=== PATIENT | male | born 1960 | race Caucasian/White ===

== ENCOUNTER 2016-09-07 09:45 | Emergency (ER) | payer OTHER ==
[~2016-09-07] VITALS: Ht 162.6 cm; Wt 94.0 kg
[~2016-09-07 09:45] MED LIST: AMLO10TA4 PO; CTP1CL PO; FURO20TA PO; GLC/500 PO; INSHI7030 SC; INSHRI SC; LISI40TA PO; METO-551 PO; OMEP20CA9 PO; [UNRECOGNIZED DRUG - OTHER] PO; normal saline IV
[2016-09-07 09:49] VITALS: Ht 162.6 cm; Wt 94.0 kg
--- NOTE | 2016-09-07 10:34 | EMERGENCY ROOM VISIT NOTE ---
History Report prepared by David: Milly Toscano Under the Supervision of: Dr. Raymundo Eastman D.O. First contact with patient: 10:18 Chief Complaint: ILLNESS Stated Complaint: LEFT FACE/ LEFT ARM NUMBNESS History of Present Illness The patient is a 56 year old male who presents to the Emergency Room with complaints of persistent left arm and left cheek numbness that began when he woke up at 0600 this morning. The patient states that he has a history of a previous NE, quadruple bypass, and diabetes. He states that today when he told the staff at the [facility] about his numbness, they were concerned about another possible NE so he was sent here for further work up. The patient states that he intermittently becomes lightheaded and experiences a headache, but attributes that to varying blood glucose levels. He denies any weakness or pain to his extremities. The patient denies any chest pain. He denies any previous stroke. Source of History: patient Onset: 0600 this morning Position: arm (left), other (left cheek) Quality: numbness Timing: other (persistent) Associated Symptoms: + headache, No chest pain, No weakness Note: Associated Symptoms: lightheaded Review of Systems See HPI for pertinent positives & negatives. A total of 10 systems reviewed and were otherwise negative. Past Medical & Surgical Medical Problems: (1) Benign hypertension (2) Diabetes mellitus (3) Hyperlipidemia Family History Diabetes mellitus Social History Smoking Status: Former Smoker Marital Status: single Housing Status: other Current/Historical Medications Scheduled Amlodipine Besylate (Norvasc), 20 MG PO DAILY Atorvastatin (Lipitor), 1 TAB PO DAILY Hydrochlorothiazide (Hydrochlorothiazide), 1 TAB PO DAILY Insulin (Humulin R), 5 UNITS SC BIDM Insulin (Humulin R), 10 UNITS SC BID PRN Insulin Human Isophan/Regular (Humulin 70/30), 20 UNITS SC BID Lisinopril (Zestril), 20 MG PO DAILY Metformin Hcl (Glucophage), 500 MG PO BID Metoprolol Tartrate (Lopressor), 50 MG PO BID Omeprazole (Prilosec), 20 MG PO DAILY Allergies Coded Allergies: Aspirin (Verified Allergy, hives, 09/10/12) Physical Exam Vital Signs Date Time Temp Pulse Resp B/P Pulse Ox O2 Delivery O2 Flow Rate FiO2 09/07/16 12:56 37.2 92 17 148/85 98 Room Air 09/07/16 11:18 110 20 151/92 100 Room Air 09/07/16 10:56 99 Room Air 09/07/16 10:56 99 Room Air 09/07/16 09:59 90 09/07/16 09:49 36.7 94 20 175/93 99 Room Air Physical Exam GENERAL: Patient is awake, alert, and in no acute distress. Patient is resting comfortably and showing no signs of anxiety EYES: The conjunctivae are clear. The pupils are round and reactive. EARS, NOSE, MOUTH AND THROAT: The nose is without any evidence of any deformity. Mucous membranes are moist tongue is midline NECK: The neck is nontender and supple. RESPIRATORY: Normal respiratory effort is noted there is no evidence of wheezing rhonchi or rales CARDIOVASCULAR: Regular rate and rhythm noted there no murmurs rubs or gallops normal S1 normal S2 GASTROINTESTINAL: The abdomen is soft. Bowel sounds are present in all quadrants. Abdomen is nontender MUSCULOSKELETAL/EXTREMITIES: There is no evidence of gross deformity full range of motion is noted in the hips and shoulders SKIN: There is no obvious evidence of any rash. There are no petechiae, pallor or cyanosis noted. NEUROLOGIC: Patient is awake alert and oriented x3 strength is symmetric patellar reflexes are 2+ bilaterally Medical Decision & Procedures ER Provider Diagnostic Interpretation: X ray results and stated below per my interpretation and radiology interpretation. Other radiology results per my review and radiologist interpretation: CT SCAN OF THE BRAIN WITHOUT IV CONTRAST CLINICAL HISTORY: Weakness. Change in mental status. COMPARISON STUDY: No priors. TECHNIQUE: Unenhanced axial CT scan of the brain is performed from the vertex to the skull base. CT DOSE: 537.48 mGy.cm FINDINGS: Brain parenchyma: There is mild subcortical and periventricular microangiopathic change. There is no hemorrhage, mass effect, or evidence of acute territorial ischemia by CT criteria. Kebede-white matter is preserved. No extra-axial fluid collection is seen. Ventricles, sulci, cisterns: Normal in configuration. Intracranial vasculature: There is minimal atherosclerotic calcification of the cavernous carotid and vertebral arteries. Calvarium: Unremarkable. Sinuses and mastoids: The visualized paranasal sinuses are clear. The mastoid air cells are well pneumatized. Orbits: The bony orbits are grossly intact. The right ocular globe is atrophic and densely calcified. The left orbital contents are grossly normal as visualized. IMPRESSION: There is no hemorrhage, mass effect, or evidence of acute territorial ischemia by CT criteria. Electronically signed by: Artemio Mercedes M.D. 09/07/2016 11:11 AM Dictated Date/Time: 09/07/2016 11:08 AM SINGLE VIEW CHEST CLINICAL HISTORY: Change in mental status. Weakness. FINDINGS: An AP, portable, upright chest radiograph is compared to study dated 09/10/12 and correlated with chest CT dated 09/11/12. The examination is degraded by portable technique, apical lordotic positioning, and patient rotation. The patient is status post midline sternotomy. The heart is enlarged and there is atherosclerotic calcification of the thoracic aorta. The pulmonary vasculature is noncongested. Chronic interstitial thickening is similar to previous. There is no airspace consolidation, large pleural effusion, or pneumothorax. The skeletal structures are osteopenic. The bony thorax is grossly intact. IMPRESSION: Cardiomegaly with no acute cardiopulmonary abnormality. Electronically signed by: Artemio Mercedes M.D. 09/07/2016 10:44 AM Dictated Date/Time: 09/07/2016 10:43 AM Laboratory Results 09/07/16 10:00 Red Blood Count 5.21, Mean Corpuscular Volume 83.3, Mean Corpuscular Hemoglobin 29.6, Mean Corpuscular Hemoglobin Concent 35.5, Mean Platelet Volume 10.4, Neutrophils (%) (Auto) 72.7, Lymphocytes (%) (Auto) 16.3, Monocytes (%) (Auto) 8.6, Eosinophils (%) (Auto) 1.5, Basophils (%) (Auto) 0.4, Neutrophils # (Auto) 5.32, Lymphocytes # (Auto) 1.19, Monocytes # (Auto) 0.63, Eosinophils # (Auto) 0.11, Basophils # (Auto) 0.03 09/07/16 10:00 Test 09/07/16 10:00 09/07/16 10:53 White Blood Count 7.32 K/uL (4.8-10.8) Red Blood Count 5.21 M/uL (4.7-6.1) Hemoglobin 15.4 g/dL (14.0-18.0) Hematocrit 43.4 % (42-52) Mean Corpuscular Volume 83.3 fL (80-100) Mean Corpuscular Hemoglobin 29.6 pg (25-34) Mean Corpuscular Hemoglobin Concent 35.5 g/dl (32-36) Platelet Count 247 K/uL (130-400) Mean Platelet Volume 10.4 fL (7.4-10.4) Neutrophils (%) (Auto) 72.7 % Lymphocytes (%) (Auto) 16.3 % Monocytes (%) (Auto) 8.6 % Eosinophils (%) (Auto) 1.5 % Basophils (%) (Auto) 0.4 % Neutrophils # (Auto) 5.32 K/uL (1.4-6.5) Lymphocytes # (Auto) 1.19 K/uL (1.2-3.4) Monocytes # (Auto) 0.63 K/uL (0.11-0.59) Eosinophils # (Auto) 0.11 K/uL (0-0.5) Basophils # (Auto) 0.03 K/uL (0-0.2) RDW Standard Deviation 37.1 fL (36.4-46.3) RDW Coefficient of Variation 12.3 % (11.5-14.5) Immature Granulocyte % (Auto) 0.5 % Immature Granulocyte # (Auto) 0.04 K/uL (0.00-0.02) Prothrombin Time 11.6 SECONDS (9.0-12.0) Prothromb Time International Ratio 1.1 (0.9-1.1) Activated Partial Thromboplast Time 25.7 SECONDS (21.0-31.0) Partial Thromboplastin Ratio 1.0 Anion Gap 13.0 mmol/L (3-11) Est Creatinine Clear Calc Drug Dose 78.5 ml/min Estimated GFR () 87.1 Estimated GFR (Non- 75.2 BUN/Creatinine Ratio 13.9 (10-20) Calcium Level 9.1 mg/dl (8.5-10.1) Magnesium Level 1.6 mg/dl (1.8-2.4) Total Bilirubin 0.4 mg/dl (0.2-1) Direct Bilirubin 0.1 mg/dl (0-0.2) Aspartate Amino Transf (AST/SGOT) 22 U/L (15-37) Alanine Aminotransferase (ALT/SGPT) 34 U/L (12-78) Alkaline Phosphatase 93 U/L (45-117) Total Creatine Kinase 210 U/L (39-308) Creatine Kinase MB 6.6 ng/ml (0.5-3.6) Creatine Kinase MB Ratio 3.1 (0-3.0) Troponin I < 0.015 ng/ml (0-0.045) Total Protein 8.3 gm/dl (6.4-8.2) Albumin 3.5 gm/dl (3.4-5.0) Thyroid Stimulating Hormone (TSH) 0.803 uIu/ml (0.300-4.500) Urine Color YELLOW Urine Appearance CLEAR (CLEAR) Urine pH 7.5 (4.5-7.5) Urine Specific [place] 1.013 (1.000-1.030) Urine Protein NEG (NEG) Urine Glucose (UA) 3+ (NEG) Urine Ketones NEG (NEG) Urine Occult Blood NEG (NEG) Urine Nitrite NEG (NEG) Urine Bilirubin NEG (NEG) Urine Urobilinogen NEG (NEG) Urine Leukocyte Esterase NEG (NEG) Laboratory results per my review. Medications Administered Medications (Trade) Dose Ordered Sig/Gertrudis Route Start Time Stop Time Status Last Admin Dose Admin Sodium Chloride (Nss 1000ml) 1,000 ml @ 999 mls/hr Q1H1M STAT IV 09/07/16 11:44 09/07/16 12:44 DC 09/07/16 11:52 999 MLS/HR Magnesium Sulfate (Magnesium Sulfate) 1 gm NOW STAT IV 09/07/16 11:44 09/07/16 11:45 DC 09/07/16 11:52 1 GM ECG Indication: other (numbness) Rate (beats per minute): 91 Rhythm: normal sinus Findings: no ectopy, other (no ST segment abnormalities) Comparison ECG Date: 09/15/12 Change: no significant change ED Course 1022: The patient was evaluated in room B5. A complete history and physical examination were performed. 1144: Ordered Sodium Chloride 1000 ml @ 999 mls/hr IV, Magnesium Sulfate 1 gm IV. 1145: I reevaluated the patient and he is resting comfortably. I discussed the exam findings with him and I discussed the treatment plan. He verbalized complete understanding and agreement. He is ready to go home once he receives his fluids. Medical Decision Differential diagnosis: Etiologies such as metabolic, infection, hypo/hyperglycemia, electrolyte abnormalities, cardiac sources, intracerebral event, toxicologic, neurologic, as well as others were entertained. Nursing notes reviewed. The patient is a 56-year-old male who presented to the emergency department from the [facility] for an evaluation of possible cardiac abnormality. The patient was complaining of left upper extremity numbness. He did not have any focal neurologic deficit. He did not have any elevation in his cardiac biomarkers. His EKG did not show any acute abdomen abnormalities. I discussed the patient's laboratory and radiographic studies with him. He was treated with IV fluids in the emergency department. He was advised to follow-up with the physician at the halfway this is possible. He was also encouraged to continue all medications as prescribed. He was also encouraged to have a repeat CAT scan or an MRI of the head if symptoms do not improve otherwise he was encouraged to discuss possibility that he may require a stress test to further evaluate the cause of his complaints. Otherwise he was encouraged to return to the emergency department immediately if symptoms change worsen or need arises. Impression Primary Impression: Left sided chest pain Additional Impression: Hypomagnesemia Scribe Attestation The scribe's documentation has been prepared under my direction and personally reviewed by me in its entirety. I confirm that the note above accurately reflects all work, treatment, procedures, and medical decision making performed by me. Departure Information Dispostion Home / Self-Care Referrals Simi PLUMMER (PCP) Forms HOME CARE DOCUMENTATION FORM, IMPORTANT VISIT INFORMATION, WORK / SCHOOL INSTRUCTIONS Patient Instructions ED Chest Pain Atypical Unkn Cause, My [facility] Additional Instructions Continue all medications as prescribed. Rest and avoid any strenuous activity. Follow-up with the physician this week for reevaluation. You may require further studies such as an MRI the brain or possibly a stress test to further evaluate the cause your symptoms. Return to the emergency department if symptoms worsen or if need arises. Problem Qualifiers
[2016-09-07 10:43] LABS: BASO % 0.4 %; BASO ABS # 0.03 K/uL (0-0.2); COMPLETE YES; EOS % 1.5 %; HEMATOCRIT 43.4 % (42-52); IG% 0.5 %; LYMPH % 16.3 %; LYMPH ABS # 1.19 K/uL (1.2-3.4); MEAN CELL VOLUME 83.3 fL (80-100); MEAN CORPUSCULAR HEMOGLOBIN 29.6 pg (25-34); MEAN CORPUSCULAR HGB CONC 35.5 g/dl (32-36); MEAN PLATELET VOLUME 10.4 fL (7.4-10.4); MONO % 8.6 %; NEUT % 72.7 %; PLATELET COUNT 247 K/uL (130-400); RED BLOOD COUNT 5.21 M/uL (4.7-6.1); WHITE BLOOD COUNT 7.32 K/uL (4.8-10.8)
[2016-09-07] MEDS ORDERED: HYDR12.55 PO (10:45)
[2016-09-07] MEDS ORDERED: LISI-725 PO (10:45)
[2016-09-07] MEDS ORDERED: ATOR-22 PO (10:45)
--- NOTE | 2016-09-07 10:45 | DIAGNOSTIC IMAGING REPORT ---
SINGLE VIEW CHEST CLINICAL HISTORY: Change in mental status. Weakness. FINDINGS: An AP, portable, upright chest radiograph is compared to study dated 09/10/12 and correlated with chest CT dated 09/11/12. The examination is degraded by portable technique, apical lordotic positioning, and patient rotation. The patient is status post midline sternotomy. The heart is enlarged and there is atherosclerotic calcification of the thoracic aorta. The pulmonary vasculature is noncongested. Chronic interstitial thickening is similar to previous. There is no airspace consolidation, large pleural effusion, or pneumothorax. The skeletal structures are osteopenic. The bony thorax is grossly intact. IMPRESSION: Cardiomegaly with no acute cardiopulmonary abnormality. Electronically signed by: Artemio Mercedes M.D. 09/07/2016 10:44 AM Dictated Date/Time: 09/07/2016 10:43 AM
[2016-09-07 10:49] LABS: INR 1.1 (0.9-1.1); PROTHROMBIN TIME (PATIENT) 11.6 SECONDS (9.0-12.0)
[2016-09-07 10:51] LABS: ALT/SGPT 34 U/L (12-78); BLOOD UREA NITROGEN 15 mg/dl (7-18); BUN/CREATININE RATIO 13.9 (10-20); CALCIUM 9.1 mg/dl (8.5-10.1); CARBON DIOXIDE 22 mmol/L (21-32); CHLORIDE 99 mmol/L (98-107); GLUCOSE 280 mg/dl (70-99); MAGNESIUM 1.6 mg/dl (1.8-2.4); POTASSIUM 4.3 mmol/L (3.5-5.1); SODIUM 134 mmol/L (136-145)
[2016-09-07 10:56] VITALS: O2SAT 99
[2016-09-07 11:01] LABS: ALKALINE PHOSPHATASE 93 U/L (45-117); AST/SGOT 22 U/L (15-37); CKMB/CK RATIO 3.1 (0-3.0); THYROID STIMULATING HORMONE 0.803 uIu/ml (0.300-4.500)
--- NOTE | 2016-09-07 11:12 | DIAGNOSTIC IMAGING REPORT ---
CT SCAN OF THE BRAIN WITHOUT IV CONTRAST CLINICAL HISTORY: Weakness. Change in mental status. COMPARISON STUDY: No priors. TECHNIQUE: Unenhanced axial CT scan of the brain is performed from the vertex to the skull base. CT DOSE: 537.48 mGy.cm FINDINGS: Brain parenchyma: There is mild subcortical and periventricular microangiopathic change. There is no hemorrhage, mass effect, or evidence of acute territorial ischemia by CT criteria. Kebede-white matter is preserved. No extra-axial fluid collection is seen. Ventricles, sulci, cisterns: Normal in configuration. Intracranial vasculature: There is minimal atherosclerotic calcification of the cavernous carotid and vertebral arteries. Calvarium: Unremarkable. Sinuses and mastoids: The visualized paranasal sinuses are clear. The mastoid air cells are well pneumatized. Orbits: The bony orbits are grossly intact. The right ocular globe is atrophic and densely calcified. The left orbital contents are grossly normal as visualized. IMPRESSION: There is no hemorrhage, mass effect, or evidence of acute territorial ischemia by CT criteria. Electronically signed by: Artemio Mercedes M.D. 09/07/2016 11:11 AM Dictated Date/Time: 09/07/2016 11:08 AM
[2016-09-07 11:24] LABS: URINE APPEARANCE CLEAR (CLEAR); URINE BILIRUBIN NEG (NEG); URINE COLOR YELLOW; URINE NITRITE NEG (NEG); URINE PH 7.5 (4.5-7.5); URINE SPECIFIC GRAVITY 1.013 (1.000-1.030); UROBILINOGEN NEG (NEG)
[2016-09-07 11:28] LABS: MANUAL MICROSCOPIC REQUIRED? NO; REVIEW REQ? NO
[2016-09-07] MEDS ORDERED: MAGNESIUM SULFATE 1GM / D5W 1 GM BAG IV STA (11:44)
[2016-09-07] MEDS ORDERED: SODIUM CHLORIDE 0.9% 1000ML 1,000 ML IV STA (11:44)
[2016-09-07 12:56] VITALS: BP 148/85; PULSE 92; TEMP 37.2; O2SAT 98
== END 2016-09-07 13:01 | disposition home or self-care (01) ==
LOC: EDBD 09:45 → C.EDB 09:47
DX: R07.9 Chest pain, unspecified (principal); E83.42 Hypomagnesemia; I10 Essential (primary) hypertension; E11.9 Type 2 diabetes mellitus without complications; E78.5 Hyperlipidemia, unspecified; Z83.3 Family history of diabetes mellitus; Z79.4 Long term (current) use of insulin; Z79.899 Other long term (current) drug therapy

== ENCOUNTER 2020-06-30 09:27 | Inpatient (IN) ==
[2020-06-30] MEDS ORDERED: ACETAMINOPHEN 500 MG TAB PO STA (09:45)
--- NOTE | 2020-06-30 10:15 | Emergency Department Note ---
History of Present Illness General Chief complaint: Infection Stated complaint: CELLULITIS LT FOOT Time Seen by Provider: 06/30/20 09:42 History of Present Illness Provider complaint: Left foot redness and swelling Onset (ago): day(s) 4 Location: lower extremity and left Radiation: non-radiation Severity: moderate Maximum Pain Intensity: 9 Current Pain Intensity: 7 Quality: + stabbing and + sharp Relieved By: + none Exacerbated By: + none Associated symptoms: + fever/chills; no chest pain, no cough and no shortness of breath 60-year-old incarcerated male presents emergency department for left lower extremity redness and swelling. Patient reports for last 4 days his left lower extremity has been increasingly red and swollen. He states it is hot and burning. He states it is painful to walk. He denies any chest pain difficulty breathing. No cough. No loss of taste or smell. Home Medications Medication Instructions Recorded Confirmed Type atorvastatin 20 mg PO HS 06/30/20 06/30/20 History calcium carbonate-vitamin D3 1 tab PO BID 06/30/20 06/30/20 History [Calcium 600 + D(3)] glucose 4 g PO BID 06/30/20 06/30/20 History insulin NPH and regular human 24 unit SUBCUT BID 06/30/20 06/30/20 History [Novolin 70-30 FlexPen U-100] lisinopril 40 mg PO QAM 06/30/20 06/30/20 History metformin 500 mg PO BID 06/30/20 06/30/20 History metoprolol tartrate 25 mg PO BID 06/30/20 06/30/20 History nitroglycerin [Nitrostat] 0.4 mg SUBLINGUAL UD 06/30/20 06/30/20 History omeprazole 40 mg PO QAM 06/30/20 06/30/20 History Allergies Allergy/AdvReac Type Severity Reaction Status Date / Time aspirin Allergy hives Verified 06/30/20 10:28 Past Med/Surg History Medical History (Updated 06/30/20 @ 15:48 by Hermes Astorga) Diabetes No pertinent family history Surgical History (Updated 06/30/20 @ 10:14 by Hermes Astorga) No pertinent past surgical history Social History Smoking Status: Former smoker Second Hand Exposure: No; Do You Dip or Chew Tobacco: No; Tobacco Cessation Education Requested by Patient: No Hx Alcohol Use: No Hx Substance Use: No Preferred Language: Bulgarian Communication Ability: Effective Beliefs That Will Affect Care: None Current Living Situation: Other Current Living Situation Comment: [facility] Other Information That Helps Us Care for You: No Feels Safe at Home: Yes Safety Concerns: Feels Safe At This Time Assistive Devices: Glasses Review of Systems A total of 10 systems reviewed and were otherwise negative Physical Exam Vital Signs Vital Signs - 24 hr 06/30/20 09:38 06/30/20 10:00 06/30/20 10:15 Temperature 38.0 C H Temperature Source Temporal Artery Scan Pulse Rate 108 H 107 H 107 H Pulse Rate from SpO2 Sensor Respiratory Rate 17 18 21 Respiratory Effort / Characteristics Non-Labored Spontaneous Non-Labored Spontaneous Respiratory Depth Normal Respiratory Pattern Regular Blood Pressure 155/75 H Blood Pressure Mean 101 Blood Pressure Position Sitting Pulse Oximetry 100 99 Oxygen Delivery Method Room Air Room Air Sepsis Recent Fever Within 48 Hours Yes Sepsis New/Unexplained Change in Mental Status No Sepsis Action Taken by Nursing No Action Required 06/30/20 10:20 06/30/20 10:29 06/30/20 10:30 Temperature Temperature Source Pulse Rate 108 H 107 H 109 H Pulse Rate from SpO2 Sensor 108 H 109 H Respiratory Rate 30 H 20 30 H Respiratory Effort / Characteristics Respiratory Depth Respiratory Pattern Blood Pressure 94/67 L Blood Pressure Mean 73 Blood Pressure Position Pulse Oximetry 99 99 Oxygen Delivery Method Sepsis Recent Fever Within 48 Hours Sepsis New/Unexplained Change in Mental Status Sepsis Action Taken by Nursing 06/30/20 10:40 06/30/20 10:50 06/30/20 11:00 Temperature Temperature Source Pulse Rate 105 H 112 H 111 H Pulse Rate from SpO2 Sensor 104 H 113 H 111 H Respiratory Rate 25 H 15 21 Respiratory Effort / Characteristics Respiratory Depth Respiratory Pattern Blood Pressure Blood Pressure Mean Blood Pressure Position Pulse Oximetry 99 98 98 Oxygen Delivery Method Sepsis Recent Fever Within 48 Hours Sepsis New/Unexplained Change in Mental Status Sepsis Action Taken by Nursing 06/30/20 11:10 06/30/20 11:12 06/30/20 11:20 Temperature Temperature Source Pulse Rate 112 H 108 H Pulse Rate from SpO2 Sensor 110 H 109 H Respiratory Rate 16 Respiratory Effort / Characteristics Non-Labored Spontaneous Respiratory Depth Respiratory Pattern Blood Pressure Blood Pressure Mean Blood Pressure Position Pulse Oximetry 98 98 96 Oxygen Delivery Method Room Air Sepsis Recent Fever Within 48 Hours Sepsis New/Unexplained Change in Mental Status Sepsis Action Taken by Nursing 06/30/20 11:23 06/30/20 11:24 06/30/20 11:30 Temperature Temperature Source Pulse Rate 107 H Pulse Rate from SpO2 Sensor 108 H 111 H 106 H Respiratory Rate Respiratory Effort / Characteristics Respiratory Depth Respiratory Pattern Blood Pressure 93/64 L 90/63 L Blood Pressure Mean 72 71 Blood Pressure Position Pulse Oximetry 97 98 96 Oxygen Delivery Method Sepsis Recent Fever Within 48 Hours Sepsis New/Unexplained Change in Mental Status Sepsis Action Taken by Nursing 06/30/20 11:31 06/30/20 11:40 Temperature Temperature Source Pulse Rate 76 Pulse Rate from SpO2 Sensor 108 H 106 H Respiratory Rate 41 H Respiratory Effort / Characteristics Respiratory Depth Respiratory Pattern Blood Pressure Blood Pressure Mean Blood Pressure Position Pulse Oximetry 97 97 Oxygen Delivery Method Sepsis Recent Fever Within 48 Hours Sepsis New/Unexplained Change in Mental Status Sepsis Action Taken by Nursing Physical Exam GENERAL: He is oriented to person, place, and time. He appears well-developed and well-nourished. He does not appear distressed. HENT: Exam performed. - Head: Normocephalic and atraumatic. - Right Ear: External ear normal. No mastoid tenderness. - Left Ear: External ear normal. No mastoid tenderness. - Mouth/Throat: The oropharynx is clear and moist. No trismus in the jaw. No dental abscesses or uvula swelling. No oropharyngeal exudate or tonsillar abscesses. EYES: Conjunctivae and EOM are normal. Pupils are equal, round, and reactive to light. Right eye exhibits no discharge. Left eye exhibits no discharge. No scleral icterus. NECK: Normal range of motion. Neck supple. No JVD present. No spinous process tenderness present. No carotid bruit present. No rigidity. No tracheal deviation and normal range of motion present. No Brudzinski's sign and no Kernig's sign noted. CV: Tachycardic rate, regular rhythm, normal heart sounds and intact distal pulses. There is no peripheral edema. Palpable radial pulses bue. PULM/CHEST: Rhonchi bilaterally. ABD: The abdomen is soft. Bowel sounds are normal. He has no distension. No mass is present. There is no tenderness. There is no rebound, no guarding, no Villalobos's sign and no tenderness at McBurney's point. Rovsig negative. MUSC/SKEL: Left lower extremity erythematous and warm to touch. No vesicular lesions. No maculopapular lesions. No fluctuant areas or areas of discharge. Appearance is consistent with cellulitis. Palpable DP and PT pulse. Right lower extremity within normal limits. LYMPH: No cervical adenopathy. NEURO: He is alert and oriented to person, place, and time. He has normal strength. No cranial nerve deficit or sensory deficit. Coordination and gait normal. GCS eye subscore is 4. GCS verbal subscore is 5. GCS motor subscore is 6. Cerebellar tests wnl. Course Course 0942: The patient was evaluated in room C10. A complete history and physical exam was performed. Cardiac monitoring: An order was placed for continuous cardiac monitoring. The monitor shows a rate of 110 with sinus rhythm Patient was seen in full airborne precautions. Patient was seen in N95's, gloves, gowns, face shield by myself and staff. 1124: Patient remains tachycardic and is becoming hypotensive. Patient's lactic acid is elevated at 2.3. White count is elevated 14.9. Procalcitonin elevated at 13.28. Patient is Covid positive. Chest x-ray shows no groundglass opacities. The patient's oxygen saturation is within normal limits. No need for Decadron at this time. Patient will be treated with IV fluids 2 L which be the equivalent of 30 cc/kg based off the patient's ideal body weight. Patient is most likely suffering from a bacterial cellulitis causing sepsis in addition to having COVID-19. Patient be treated with vancomycin IV piggyback. Patient will be admitted to the [facility] Dr. Abreu notified. Administered Medications Magnesium Oxide (Magnesium Oxide 400 Mg Tab) 400 mg PO QAM [facility] Stop: 07/30/20 13:13 Last Admin: 06/30/20 14:43 Dose: 400 mg Documented by: [id number] Discontinued Medications Acetaminophen (Acetaminophen 500 Mg Tab) 1,000 mg PO NOW STA Stop: 06/30/20 09:46 Last Admin: 06/30/20 10:35 Dose: 1,000 mg Documented by: [id number] Sodium Chloride (Nss 1000ml) 1,000 mls @ 999 mls/hr IV .Q1H1M ONE Stop: 06/30/20 12:23 Last Infusion: 06/30/20 13:53 Dose: 0 mls/hr Documented by: [id number] Admin: 06/30/20 11:51 Dose: 999 mls/hr Documented by: [id number] Vancomycin HCl 2,000 mg/ (Sodium Chloride) 540 mls @ 200 mls/hr IV NOW ONE Stop: 06/30/20 14:04 Last Infusion: 06/30/20 14:45 Dose: 0 mls/hr Documented by: [id number] Admin: 06/30/20 11:52 Dose: 200 mls/hr Documented by: [id number] Piperacillin Sod/Tazobactam Sod (Zosyn) 4.5 gm in 120 mls @ 240 mls/hr IV NOW ONE Stop: 06/30/20 12:06 Last Admin: 06/30/20 13:50 Dose: Not Given Documented by: [id number] Sodium Chloride (Nss 1000ml) 1,000 mls @ 999 mls/hr IV .Q1H1M ONE Stop: 06/30/20 12:40 Last Admin: 06/30/20 14:00 Dose: Not Given Documented by: [id number] Sodium Chloride (Nss 1000ml) 1,000 mls @ 999 mls/hr IV .Q1H1M PRASAD Stop: 06/30/20 13:48 Last Admin: 06/30/20 14:55 Dose: 999 mls/hr Documented by: [id number] Infusion: 06/30/20 14:55 Dose: 0 mls/hr Documented by: [id number] Admin: 06/30/20 13:53 Dose: 999 mls/hr Documented by: [id number] Piperacillin Sod/Tazobactam Sod (Piperacillin/Tazobactam 4.5 Gm/120ml D5w) Confirm Administered Dose 4.5 gm .ROUTE .STK-MED ONE Stop: 06/30/20 11:54 Last Admin: 06/30/20 12:23 Dose: 4.5 gm Documented by: [id number] Critical Care Time Critical Care Time: Yes Total Critical Care Time: 59 I have personally spent greater than 59 minutes of critical care time in the direct management of this patient. This includes bedside care, interpretation of diagnostic studies, and testing, discussion with consultants, patient, and family members, and other required patient management activities. This 59 minutes is in excess of all separately billable procedures. Medical Decision Making Laboratory Data Result diagrams: 06/30/20 10:20 06/30/20 10:20 Lab Results 06/30/20 06/30/20 06/30/20 Range/Units 10:20 10:20 10:20 WBC 14.90 H (4.8-10.8) K/uL RBC 4.55 L (4.7-6.1) M/uL Hgb 13.9 L (14.0-18.0) g/dL Hct 39.4 L (42-52) % MCV 86.6 (80-100) fL MCH 30.5 (25-34) pg MCHC 35.3 (32-36) g/dL RDW Std Deviation 41.2 (36.4-46.3) fL RDW Coeff of Norbert 12.9 (11.5-14.5) % Plt Count 205 (130-400) K/uL MPV 10.7 H (7.4-10.4) fL Immature Gran % (Auto) 0.3 % Neut % (Auto) 86.2 % Lymph % (Auto) 5.4 % Atkinson % (Auto) 8.0 % Eos % (Auto) 0.0 % Baso % (Auto) 0.1 % Neut # (Auto) 12.84 H (1.4-6.5) K/uL Lymph # (Auto) 0.81 L (1.2-3.4) K/uL Atkinson # (Auto) 1.19 H (0.11-0.59) K/uL Eos # (Auto) 0.00 (0-0.5) K/uL Baso # (Auto) 0.01 (0-0.2) K/uL Immature Gran # (Auto) 0.05 H (0.00-0.02) K/uL PT 11.3 (9.0-12.0) Seconds INR 1.1 (0.9-1.1) APTT 36.8 H (21.0-31.0) Seconds PTT Ratio 1.3 Sodium (136-145) mmol/L Potassium (3.5-5.1) mmol/L Chloride (98-107) mmol/L Carbon Dioxide (21-32) mmol/L Anion Gap (3-11) BUN (7-18) mg/dl Creatinine (0.6-1.4) mg/dl Est Cr Clr Drug Dosing ml/min Est GFR ( Amer) Est GFR (Non-Af Amer) BUN/Creatinine Ratio (10-20) Glucose (70-99) mg/dl Lactate (0.4-2.0) mmol/L Calcium (8.5-10.1) mg/dl Magnesium (1.8-2.4) mg/dl Total Bilirubin (0.2-1) mg/dl AST (15-37) U/L ALT (12-78) U/L Alkaline Phosphatase (45-117) U/L Total Protein (6.4-8.2) gm/dl Albumin (3.4-5.0) gm/dl Globulin (2.5-4.0) gm/dl Albumin/Globulin Ratio (0.9-2) Procalcitonin 13.28 H (0-0.5) ng/ml COVID-19 Eval Order SARS-CoV-2, RNA, NAAT (NEGATIVE) 06/30/20 06/30/20 06/30/20 Range/Units 10:20 10:20 10:20 WBC (4.8-10.8) K/uL RBC (4.7-6.1) M/uL Hgb (14.0-18.0) g/dL Hct (42-52) % MCV (80-100) fL MCH (25-34) pg MCHC (32-36) g/dL RDW Std Deviation (36.4-46.3) fL RDW Coeff of Norbert (11.5-14.5) % Plt Count (130-400) K/uL MPV (7.4-10.4) fL Immature Gran % (Auto) % Neut % (Auto) % Lymph % (Auto) % Atkinson % (Auto) % Eos % (Auto) % Baso % (Auto) % Neut # (Auto) (1.4-6.5) K/uL Lymph # (Auto) (1.2-3.4) K/uL Atkinson # (Auto) (0.11-0.59) K/uL Eos # (Auto) (0-0.5) K/uL Baso # (Auto) (0-0.2) K/uL Immature Gran # (Auto) (0.00-0.02) K/uL PT (9.0-12.0) Seconds INR (0.9-1.1) APTT (21.0-31.0) Seconds PTT Ratio Sodium 130 L (136-145) mmol/L Potassium 4.0 (3.5-5.1) mmol/L Chloride 98 (98-107) mmol/L Carbon Dioxide 25 (21-32) mmol/L Anion Gap 7.0 (3-11) BUN 22 H (7-18) mg/dl Creatinine 1.15 (0.6-1.4) mg/dl Est Cr Clr Drug Dosing 77.9 ml/min Est GFR ( Amer) 80.3 Est GFR (Non-Af Amer) 69.3 BUN/Creatinine Ratio 19.0 (10-20) Glucose 215 H (70-99) mg/dl Lactate 2.3 H* (0.4-2.0) mmol/L Calcium 8.5 (8.5-10.1) mg/dl Magnesium 1.7 L (1.8-2.4) mg/dl Total Bilirubin 0.7 (0.2-1) mg/dl AST 33 (15-37) U/L ALT 36 (12-78) U/L Alkaline Phosphatase 70 (45-117) U/L Total Protein 7.9 (6.4-8.2) gm/dl Albumin 3.2 L (3.4-5.0) gm/dl Globulin 4.7 H (2.5-4.0) gm/dl Albumin/Globulin Ratio 0.7 L (0.9-2) Procalcitonin (0-0.5) ng/ml COVID-19 Eval [facility] SARS-CoV-2, RNA, NAAT (NEGATIVE) 06/30/20 Range/Units 10:20 WBC (4.8-10.8) K/uL RBC (4.7-6.1) M/uL Hgb (14.0-18.0) g/dL Hct (42-52) % MCV (80-100) fL MCH (25-34) pg MCHC (32-36) g/dL RDW Std Deviation (36.4-46.3) fL RDW Coeff of Norbert (11.5-14.5) % Plt Count (130-400) K/uL MPV (7.4-10.4) fL Immature Gran % (Auto) % Neut % (Auto) % Lymph % (Auto) % Atkinson % (Auto) % Eos % (Auto) % Baso % (Auto) % Neut # (Auto) (1.4-6.5) K/uL Lymph # (Auto) (1.2-3.4) K/uL Atkinson # (Auto) (0.11-0.59) K/uL Eos # (Auto) (0-0.5) K/uL Baso # (Auto) (0-0.2) K/uL Immature Gran # (Auto) (0.00-0.02) K/uL PT (9.0-12.0) Seconds INR (0.9-1.1) APTT (21.0-31.0) Seconds PTT Ratio Sodium (136-145) mmol/L Potassium (3.5-5.1) mmol/L Chloride (98-107) mmol/L Carbon Dioxide (21-32) mmol/L Anion Gap (3-11) BUN (7-18) mg/dl Creatinine (0.6-1.4) mg/dl Est Cr Clr Drug Dosing ml/min Est GFR ( Amer) Est GFR (Non-Af Amer) BUN/Creatinine Ratio (10-20) Glucose (70-99) mg/dl Lactate (0.4-2.0) mmol/L Calcium (8.5-10.1) mg/dl Magnesium (1.8-2.4) mg/dl Total Bilirubin (0.2-1) mg/dl AST (15-37) U/L ALT (12-78) U/L Alkaline Phosphatase (45-117) U/L Total Protein (6.4-8.2) gm/dl Albumin (3.4-5.0) gm/dl Globulin (2.5-4.0) gm/dl Albumin/Globulin Ratio (0.9-2) Procalcitonin (0-0.5) ng/ml COVID-19 Eval Order SARS-CoV-2, RNA, NAAT POSITIVE A* (NEGATIVE) Imaging Data Radiologist's Impression: SINGLE VIEW CHEST CLINICAL HISTORY: Sepsis. FINDINGS: An AP, portable, upright chest radiograph is compared to study dated 09/07/2016. The patient is status post midline sternotomy. The heart is enlarged. The pulmonary vasculature is noncongested. The lungs and pleural spaces are clear. No pneumothorax is seen. The bony thorax is grossly intact. IMPRESSION: Cardiomegaly with no acute cardiopulmonary abnormality. ACT 112: Negative or not required by law. Electronically signed by: Artemio Mercedes M.D. 06/30/2020 10:54 AM Dictated: 06/30/20 1053Transcribed: 06/30/20 1053 ECG Data Indication: + other (sepsis) Rate (beats per minute): 108 Rhythm: + sinus tachycardia ECG Intervals/blocks: + Normal QRS, + Normal ME and + Normal QT-c ECG ST segments: + Normal ST segments MDM Narrative 0942: The patient was evaluated in room C10. A complete history and physical exam was performed. Cardiac monitoring: An order was placed for continuous cardiac monitoring. The monitor shows a rate of 110 with sinus rhythm Patient was seen in full airborne precautions. Patient was seen in N95's, gloves, gowns, face shield by myself and staff. 1124: Patient remains tachycardic and is becoming hypotensive. Patient's lactic acid is elevated at 2.3. White count is elevated 14.9. Procalcitonin elevated at 13.28. Patient is Covid positive. Chest x-ray shows no groundglass opacities. The patient's oxygen saturation is within normal limits. No need for Decadron at this time. Patient will be treated with IV fluids 2 L which be the equivalent of 30 cc/kg based off the patient's ideal body weight. Patient is most likely suffering from a bacterial cellulitis causing sepsis in addition to having COVID-19. Patient be treated with vancomycin IV piggyback. Patient will be admitted to the [facility] service Dr. Abreu notified. Impression & Plan Sepsis, Cellulitis, COVID-19 Discharge Plan Visit Data Chief Complaint: Infection Stated Complaint: CELLULITIS LT FOOT ED Provider: Hermes Astorga Discharge Problem: Sepsis, Cellulitis, COVID-19 Patient Disposition: Admitted As Inpatient Discharge Instructions Interventions: ED Discharge Assessment Last Done: 06/30/20 12:33 Discharge Problem: Sepsis Qualifiers: Sepsis type: sepsis due to unspecified organism Sepsis acute organ dysfunction status: unspecified Qualified Code(s): A41.9 - Sepsis, unspecified organism Cellulitis Qualifiers: Site of cellulitis: extremity Site of cellulitis of extremity: lower extremity Laterality: left Qualified Code(s): L03.116 - Cellulitis of left lower limb
[2020-06-30 10:39] LABS: Basophils # (auto) 0.01 K/uL (0-0.2); Basophils % (auto) 0.1 %; Hematocrit (blood only) 39.4 % (42-52); Hemoglobin 13.9 g/dL (14.0-18.0); Immature Granulocytes # (auto) 0.05 K/uL (0.00-0.02); Immature Granulocytes % (auto) 0.3 %; Lymphocytes # (auto) 0.81 K/uL (1.2-3.4); Lymphocytes % (auto) 5.4 %; Mean Corpuscular Hemoglobin 30.5 pg (25-34); Mean Corpuscular Hgb Conc 35.3 g/dL (32-36); Mean Corpuscular Volume 86.6 fL (80-100); Mean Platelet Volume 10.7 fL (7.4-10.4); Monocytes # (auto) 1.19 K/uL (0.11-0.59); Neutrophils # (auto) 12.84 K/uL (1.4-6.5); Neutrophils % (auto) 86.2 %; Platelet Count 205 K/uL (130-400); RDW Coefficient of Variation 12.9 % (11.5-14.5); RDW Standard Deviation 41.2 fL (36.4-46.3); Red Blood Count 4.55 M/uL (4.7-6.1)
[2020-06-30 10:51] LABS: INR 1.1 (0.9-1.1); Partial Thromboplastin Ratio 1.3; Partial Thromboplastin Time 36.8 Seconds (21.0-31.0); Prothrombin Time 11.3 Seconds (9.0-12.0)
[2020-06-30 10:55] LABS: Albumin Level 3.2 gm/dl (3.4-5.0); Calcium 8.5 mg/dl (8.5-10.1); Creatinine Clr Calc Pharmacy 77.9 ml/min; Est GFR (African American) 80.3; Est GFR (Non-African American) 69.3; Magnesium 1.7 mg/dl (1.8-2.4)
--- NOTE | 2020-06-30 10:55 | XRay Report ---
SINGLE VIEW CHEST CLINICAL HISTORY: Sepsis. FINDINGS: An AP, portable, upright chest radiograph is compared to study dated 09/07/2016. The patient is status post midline sternotomy. The heart is enlarged. The pulmonary vasculature is noncongested. The lungs and pleural spaces are clear. No pneumothorax is seen. The bony thorax is grossly intact. IMPRESSION: Cardiomegaly with no acute cardiopulmonary abnormality. ACT 112: Negative or not required by law. Electronically signed by: Artemio Mercedes M.D. 06/30/2020 10:54 AM
[2020-06-30 10:57] LABS: Albumin Globulin Ratio 0.7 (0.9-2); Bilirubin,Total 0.7 mg/dl (0.2-1); Globulin 4.7 gm/dl (2.5-4.0); Total Protein 7.9 gm/dl (6.4-8.2)
[2020-06-30] MEDS ORDERED: VANCOMYCIN HCL 2,000 MG in SODIUM CHLORIDE 0.9% 500 ML IV ONE (11:23)
[2020-06-30] MEDS ORDERED: SODIUM CHLORIDE 0.9% 1000ML 1,000 ML IV ONE ×2 (11:23→11:40)
[2020-06-30] MEDS ORDERED: VANCOMYCIN CONSULT ACTIVE PRN (11:23)
[2020-06-30] MEDS ORDERED: PIPERACILLIN/TAZOBACTAM 4.5 GM/120 ML BAG IV ONE (11:37)
[2020-06-30] MEDS ORDERED: PIPERACILL/TAZOBAC CONSULT ACTIVE PRN (11:37)
--- NOTE | 2020-06-30 11:51 | History & Physical Report ---
Date of Service June 30, 2020 Assessment & Plan (1) Sepsis: Suspected source cellulitis Lactate 2.2, repeat pending Fluid resuscitation total 3L NSS bolus (weight: 100kg) Follow-up blood cultures (2) Cellulitis: Vancomycin 2 g IV given in ER We will add Zosyn in addition due to severe cellulitis with sepsis. Follow-up blood cultures to determine further antibiotic treatment. Elevate extremity (3) Severe acute respiratory syndrome coronavirus 2 (SARS-CoV-2) detected: Suspected asymptomatic. No pneumonia on chest x-ray. Isolation with airborne and droplet cautions. (4) Diabetes: HbA1C with AM labs Hold metformin and insulin mix (usually takes 48 units) Switch to Lantus 15 units BID Novolog: Goal BSG Range: Low 110 mg/dL, High 140 mg/dL Correction Factor: 25 mg/dL/unit INS:CHO Ratio: 1unit per 9 gms CHO consumed BSGs ACHS if eating, q6h if npo (5) GERD (gastroesophageal reflux disease): Switch omeprazole to pantoprazole as per hospital formulary (6) Coronary artery disease: Quadruple CABG in 2008, stable since. Allergy to aspirin (presumably why he does not take this), unclear why he is not on clopidogrel or alternative antiplatelet. Hold lisinopril due to sepsis Continue atorvastatin (7) Hypertension: Hold antihypertensives given hypotension at the current time secondary to sepsis (8) Hyperlipidemia: Continue atorvastatin (9) DVT prophylaxis: Due to positive for SARS-CoV-2 even asymptomatic we will treat with increased dose of Lovenox 40 mg SQ twice daily Admission and Anticipated Discharge Date Admission Date: 06/30/2020 History of Present Illness Chief Complaint: Left leg swelling and erythema Primary Care Provider: [facility] Al Hall is a 60 year old male with CAD and T2DM who presents to the ER from [facility] with 4-5 days worsening leg cellulitis. He reports first noticing it 4-5 days ago in his [facility] but is unsure how it happened. He only told the [facility] team about it today and sent him to the ER for evaluation. He denies any fever or chills. Able to feel his toes b/l. Never had MRSA infections or recurrent cellulitis previously. In the ER subsequent SARS-COV-2 PCR positive. The patient reports having mild nasal congestion for the last month but nothing acute in the last 1-2 week. No shortness of breath, loss of taste or smell, diarrhea, abdominal pain, sore throat, headache, generalized myalgias. Allergies Allergy/AdvReac Type Severity Reaction Status Date / Time aspirin Allergy hives Verified 06/30/20 10:28 Home Medications Medication Instructions Recorded Confirmed Type atorvastatin 20 mg PO HS 06/30/20 06/30/20 History calcium carbonate-vitamin D3 1 tab PO BID 06/30/20 06/30/20 History [Calcium 600 + D(3)] glucose 4 g PO BID 06/30/20 06/30/20 History insulin NPH and regular human 24 unit SUBCUT BID 06/30/20 06/30/20 History [Novolin 70-30 FlexPen U-100] lisinopril 40 mg PO QAM 06/30/20 06/30/20 History metformin 500 mg PO BID 06/30/20 06/30/20 History metoprolol tartrate 25 mg PO BID 06/30/20 06/30/20 History nitroglycerin [Nitrostat] 0.4 mg SUBLINGUAL UD 06/30/20 06/30/20 History omeprazole 40 mg PO QAM 06/30/20 06/30/20 History Past Med/Surg History Medical History Constipation Coronary artery disease Diabetes Hyperlipidemia Hypertension No pertinent family history Surgical History History of coronary artery bypass graft 2009 quadruple No pertinent past surgical history Social History Smoking Status: Former smoker Second Hand Exposure: No; Do You Dip or Chew Tobacco: No; Tobacco Cessation Education Requested by Patient: No Hx Alcohol Use: No Hx Substance Use: No Preferred Language: Northern Irish Communication Ability: Effective Beliefs That Will Affect Care: None Current Living Situation: Other Current Living Situation Comment: [facility] Other Information That Helps Us Care for You: No Feels Safe at Home: Yes Safety Concerns: Feels Safe At This Time Assistive Devices: Glasses Review of Systems Review of Systems: All systems reviewed & are unremarkable except as noted in HPI & below Physical Exam Constitutional: WD/WN, vitals as above Eyes: + anicteric sclerae; normal pupil size ENMT: external ear and nose normal, oropharynx normal Neck: trachea midline, no thyromegaly Respiratory: normal respiratory effort, lungs clear to auscultation Cardiovascular: Rate/Rhythm: regular rate and regular rhythm Heart Sounds: no murmur Extremities: normal capillary refill and + pedal edema (1+ on left side to mid thigh); no calf tenderness Musculoskeletal: no cyanosis or clubbing, extremities motor strength 5/5 Skin: + erythema (and swelling from foot to mid thigh(likely source healing wound in 1st toe)) Neurologic: moves all extremities and awake; no focal motor deficits and not confused Psychiatric: A+Ox3, euthymic affect Genitourinary: no CVA tenderness Results & Data Results & Data ([facility]) Vital Signs (Past 12 Hours) Vital Signs Temp Pulse Resp BP Pulse Ox 06/30/20 11:23 93/64 L 97 06/30/20 11:20 108 H 96 06/30/20 11:12 16 98 06/30/20 11:10 112 H 98 06/30/20 11:00 111 H 21 98 06/30/20 10:50 112 H 15 98 06/30/20 10:40 105 H 25 H 99 06/30/20 10:30 109 H 30 H 99 06/30/20 10:29 107 H 20 94/67 L 99 06/30/20 10:20 108 H 30 H 06/30/20 10:15 107 H 21 06/30/20 10:00 107 H 18 99 06/30/20 09:38 38.0 C H 108 H 17 155/75 H 100 Diagnostic Findings SINGLE VIEW CHEST IMPRESSION: Cardiomegaly with no acute cardiopulmonary abnormality. Medications Administered ER medications given: NSS 1L bolus Vancomycin 2g IV ECG Indication: other (sepsis) Rate (beats per minute): 108 Rhythm: sinus tachycardia Findings: no acute ischemic change Comparison ECG Date: from (Sep 07, 2016) Change: no significant change Code Status & VTE Plan Code Status Full as discussed with the patient VTE Prophylaxis Plan VTE Prophylaxis will be ordered: Yes PG Care Time/CCT Total # of Minutes Spent Total Time Spent with Patient: Total time spent is greater than 50% in coordination of care (as documented) at patient's floor/unit and/or counseling patient: Coding Level of Care Code 53337 Initial Inpt Care Lvl 3 Diagnoses Sepsis A41.9 Cellulitis L03.90 Severe acute respiratory syndrome coronavirus 2 (SARS-CoV-2) detected U07.1 Diabetes E11.9 GERD (gastroesophageal reflux disease) K21.9 Coronary artery disease I25.10 Hypertension I10 Hyperlipidemia E78.5 DVT prophylaxis Z29.9
[2020-06-30] MEDS ORDERED: PIPERACILLIN/TAZOBACTAM 4.5 GM/120ML D5W ONE (11:53)
[2020-06-30 12:27] LABS: Appearance Urine Clear (Clear); Bacteria Urine Automated Negative (Negative); Bilirubin Urine Negative (Negative); Blood Urine 1+ (Negative); Cast Urine Automated 0 /lpf (0-5); Color Urine Yellow; Epithelial Cell Urine Auto 0-5 /lpf (0-5); Glucose Urine UA 3+ (Negative); Ketones Urine Negative (Negative); Leukocyte Esterase Urine Negative (Negative); Nitrite Urine Negative (Negative); Protein Urine 2+ (Negative); Specific Gravity Urine 1.018 (1.000-1.030); Urobilinogen Urine Negative (Negative)
[2020-06-30] MEDS ORDERED: GLUCOSE 40% GEL 15 GM TUBE PO PRN (13:14)
[2020-06-30] MEDS ORDERED: GLUCOSE 10 TABS/TUBE PO PRN (13:14)
[2020-06-30] MEDS ORDERED: DEXTROSE 50% 50 ML SYRINGE IV PRN (13:14)
[2020-06-30] MEDS ORDERED: GLUCAGON FOR INJ 1 MG VIAL SQ PRN (13:14)
[2020-06-30] MEDS ORDERED: NITROGLYCERIN SL 0.4 MG/TAB TAB SL PRN (13:14)
[2020-06-30] MEDS ORDERED: POLYETHYLENE (MIRALAX) 17 GM PACK PO PRN (13:14)
[2020-06-30] MEDS ORDERED: ALUMINUM/MAGNESIUM SUSP 30 ML UDC PO PRN (13:14)
[2020-06-30] MEDS ORDERED: CARBOHYDRATES FOR HYPOGLYCEMIA PO PRN (13:14)
[2020-06-30] MEDS ORDERED: ONDANSETRON INJ 2 MG/ML 2 ML VIAL IV PRN (13:14)
[2020-06-30] MEDS: SODIUM CHLORIDE 0.9% 1000ML 1,000 ML IV SCH ×2 (13:53→14:55)
--- NOTE | 2020-06-30 14:24 | Pharmacy Report ---
Pharmacy Abx Initial Consult - Date of Service June 30, 2020 - Pharmacy Dosing Scope Date of Consult: 06/30/20 Consultation requested by: Dr. Abreu Pharmacy is consulted to initiate VANCOMYCIN/ZOSYN IV dosing therapy, order appropriate labs and adjust drug dose/frequency. - Subjective The patient is a 60 year old M admitted on 06/30/20 11:46. - Objective Height: 5 ft 7 in Weight: 100 kg Vital Signs (Past 12hrs): Vital Signs Temp Pulse Pulse Resp BP BP Pulse Ox 06/30/20 14:07 91 H 06/30/20 13:31 36.9 C 74 18 94/64 L 99 06/30/20 12:33 37.8 C H 95 H 20 91/61 L 97 06/30/20 12:19 37.8 C H 06/30/20 12:10 93 H 17 97 06/30/20 12:01 96 H 23 98 06/30/20 12:00 97 H 19 99/63 L 97 06/30/20 11:57 102 H 19 97 06/30/20 11:56 102 H 24 85/55 L 97 06/30/20 11:50 102 H 25 H 97 06/30/20 11:40 76 97 06/30/20 11:31 41 H 97 06/30/20 11:30 107 H 90/63 L 96 06/30/20 11:24 98 06/30/20 11:23 93/64 L 97 06/30/20 11:20 108 H 96 06/30/20 11:12 16 98 06/30/20 11:10 112 H 98 06/30/20 11:00 111 H 21 98 06/30/20 10:50 112 H 15 98 06/30/20 10:40 105 H 25 H 99 06/30/20 10:30 109 H 30 H 99 06/30/20 10:29 107 H 20 94/67 L 99 06/30/20 10:20 108 H 30 H 06/30/20 10:15 107 H 21 06/30/20 10:00 107 H 18 99 06/30/20 09:38 38.0 C H 108 H 17 155/75 H 100 Lab Results (24hrs): Laboratory Tests (24 Hours) 06/30/20 06/30/20 06/30/20 10:20 10:20 10:20 WBC 14.90 H Neut # (Auto) 12.84 H Creatinine 1.15 Est Cr Clr Drug Dosing 77.9 Procalcitonin 13.28 H Micro Results: 06/30/20 10:26 Aerobic Blood Culture - Pending Blood Anaerobic Blood Culture - Pending 06/30/20 10:20 Aerobic Blood Culture - Pending Blood Anaerobic Blood Culture - Pending - Risk Factors for Resistance * Incarcerated - Assessment & Plan Assessment 60 year old M resident of [facility]. Admitted with L foot cellulitis, also found to be COVID + (asymptomatic at this point). Plan Vancomycin IV * Estimated PK Parameters: Vd 0.7 L/kg, Neil 0.069 hr-1, t1/2 ~10hr * Loading dose: 2000mg (20 mg/kg) * Maintenance dose: 1500mg IV (15 mg/kg) every 12 hours * Goal trough level for cellulitis : 15 to 20 mcg/mL * Trough level ordered for 07/02/20 @ 0000. Piperacillin/tazobactam * 4.5 g bolus administered over 30 minutes, then 3.375 g IV extended infusion every 8 hours for CrCl greater than 20 mL/min. Pharmacy will continue to follow and will adjust dose/frequency as necessary. Thank you.
[2020-06-30] MEDS: MAGNESIUM OXIDE 400 MG TAB PO SCH (14:43)
[2020-06-30] MEDS: PIPERACILLIN/TAZOBACTAM 3.375 GM in DEXTROSE 5% 100 ML IV SCH (17:50)
[2020-06-30] MEDS: INSULIN ASPART 100 UNITS/ML 3 ML PEN SC SCH ×2 (17:56→20:01)
--- NOTE | 2020-06-30 18:21 | Electrocardiogram Report ---
Test Reason : Blood Pressure : / mmHG Vent. Rate : 108 BPM Atrial Rate : 108 BPM P-R Int : 192 ms QRS Dur : 100 ms QT Int : 336 ms P-R-T Axes : 034 058 032 degrees QTc Int : 450 ms Poor data quality, interpretation may be adversely affected Sinus tachycardia Otherwise normal ECG When compared with ECG of 07-SEP-2016 09:57, No significant change was found Confirmed by Koko Rodríguez ([id number]) on 06/30/2020 6:21:08 PM Referred By: [facility] Confirmed By:Koko Rodríguez
[2020-06-30] MEDS: CALCIUM 600MG + VIT D 400 IU TAB PO SCH (19:58)
[2020-06-30] MEDS: ATORVASTATIN 20 MG TAB PO SCH (19:59)
[2020-06-30] MEDS: ENOXAPARIN INJ 40 MG/0.4 ML SYR SQ SCH (19:59)
[2020-06-30] MEDS: INSULIN GLARGINE SOLOSTAR 100 UNITS/ML 3 ML PEN SC SCH (19:59)
[2020-07-01] MEDS: VANCOMYCIN HCL 1,500 MG in SODIUM CHLORIDE 0.9% 500 ML IV SCH ×2 (00:02→11:08)
[2020-07-01] MEDS: PIPERACILLIN/TAZOBACTAM 3.375 GM in DEXTROSE 5% 100 ML IV SCH ×3 (01:47→17:18)
[2020-07-01 06:39] LABS: Basophils # (auto) 0.01 K/uL (0-0.2); Basophils % (auto) 0.1 %; Hemoglobin 12.9 g/dL (14.0-18.0); Immature Granulocytes # (auto) 0.05 K/uL (0.00-0.02); Immature Granulocytes % (auto) 0.4 %; Lymphocytes % (auto) 10.7 %; Mean Corpuscular Hgb Conc 34.9 g/dL (32-36); Mean Platelet Volume 11.1 fL (7.4-10.4); Monocytes # (auto) 1.25 K/uL (0.11-0.59); Monocytes % (auto) 10.3 %; Neutrophils % (auto) 78.5 %; Platelet Count 178 K/uL (130-400); RDW Coefficient of Variation 12.9 % (11.5-14.5); RDW Standard Deviation 40.4 fL (36.4-46.3); White Blood Count 12.11 K/uL (4.8-10.8)
[2020-07-01 06:50] LABS: Estimated Average Glucose 197 mg/dl; Hemoglobin A1C 8.5 % (4.5-5.6)
[2020-07-01 07:21] LABS: BUN Creatinine Ratio 14.5 (10-20); Calcium 8.2 mg/dl (8.5-10.1); Creatinine Clr Calc Pharmacy 94.4 ml/min; Est GFR (African American) 102.4; Est GFR (Non-African American) 88.4; Potassium 3.6 mmol/L (3.5-5.1)
[2020-07-01] MEDS: ENOXAPARIN INJ 40 MG/0.4 ML SYR SQ SCH ×2 (08:03→19:39)
[2020-07-01] MEDS: PANTOprazole 40 MG TAB PO SCH (08:03)
[2020-07-01] MEDS: INSULIN GLARGINE SOLOSTAR 100 UNITS/ML 3 ML PEN SC SCH ×2 (08:03→19:40)
[2020-07-01] MEDS: CALCIUM 600MG + VIT D 400 IU TAB PO SCH ×2 (08:03→19:39)
[2020-07-01] MEDS: MAGNESIUM OXIDE 400 MG TAB PO SCH (08:03)
[2020-07-01] MEDS: INSULIN ASPART 100 UNITS/ML 3 ML PEN SC SCH ×4 (08:15→20:23)
--- NOTE | 2020-07-01 08:30 | Hospitalist Progress Note ---
Date of Service July 01, 2020 Assessment & Plan (1) Cellulitis: Vancomycin 2 g IV given in ER Zosyn for diabetic foot infetion Follow-up blood cultures negative to date Elevate extremity (2) Sepsis: Suspected source cellulitis Lactate 2.2, repeat pending Fluid resuscitation total 3L NSS bolus (weight: 100kg) Follow-up blood cultures (3) Severe acute respiratory syndrome coronavirus 2 (SARS-CoV-2) detected: Suspected asymptomatic. No pneumonia on chest x-ray. Isolation with airborne and droplet cautions. (4) Diabetes: [id number] Hold metformin and insulin mix (usually takes 48 units) basal bolus with Lantus 15 units BID Novolog: Goal BSG Range: Low 110 mg/dL, High 140 mg/dL Correction Factor: 25 mg/dL/unit INS:CHO Ratio: 1unit per 9 gms CHO consumed BSGs ACHS if eating, q6h if npo (5) GERD (gastroesophageal reflux disease): continue formulary ppi (6) Hypertension: Hold antihypertensives given hypotension at the current time secondary to sepsis, sepsis now resolved and will follow bp (7) Hyperlipidemia: Continue atorvastatin (8) COVID-19: (9) Coronary artery disease: Quadruple CABG in 2008, stable since. Allergy to aspirin (presumably why he does not take this), unclear why he is not on clopidogrel or alternative antiplatelet. Held lisinopril due to sepsis Continue atorvastatin (10) DVT prophylaxis: Due to positive for SARS-CoV-2 even asymptomatic we will treat with increased dose of Lovenox 40 mg SQ twice daily Admission and Anticipated Discharge Date Admission Date: June 30, 2020 Subjective Patient feels his cellulitis is much improved he still has some discomfort in leg pain and swelling, he feels the foot is the portal of entry with cracked skin on toes etc Review of Systems Review of Systems: Mild distress and fatigue no headache, blurry or double vision no speech or swallowing issues no chest pain, pressure or palpitations no shortness of breath, cough or wheezes no abdominal pain, nausea or vomiting, diarrhea or constipation no dysuria, hematuria or frequency no focal joint pain or swelling no back pain, CVA tenderness or radicular pain Erythema and swelling to the left leg now to the midshin tenderness to the left foot joints no focal signs of weakness with peripheral diabetic neuropathy no complaints of anxiety or depression. Physical Exam Physical Exam: The patient appeared well nourished and normally developed. BMI 33 mildly overweight Vital signs as documented. Head exam is normocephalic atraumatic no scleral icterus Neck is without JVD, thyromegaly, or carotid bruits. Lungs are clear to auscultation, no focal loss of breath sounds Cardiac exam, Rhythm is regular.. No murmurs, rubs or gallops. Abdominal exam reveals normal bowel sounds, soft non tender, no masses Extremities are edematous and erythema to left leg, with swelling and pain, no open areas Neurologic exam is alert and oriented, does have peripheral neuropathy Skin is with erythema and warmth with swelling to foot Psychologically is without concerns for anxiety or depression. Results & Data Results & Data ([facility]) Vital Signs (Past 12 Hours) Vital Signs Temp Pulse Resp BP Pulse Ox 07/01/20 07:59 98.4 F 98 H 18 122/80 100 07/01/20 04:35 98.8 F 95 H 18 115/79 97 06/30/20 23:59 98.1 F 90 16 118/79 99 PG Care Time/CCT Total # of Minutes Spent Total Time Spent with Patient: Total time spent is greater than 50% in coordination of care (as documented) at patient's floor/unit and/or counseling patient: Coding Level of Care Code 55335 Subseq Hosp Care Lvl 3 Diagnoses Cellulitis L03.116 Laterality: left Site of cellulitis: extremity Site of cellulitis of extremity: lower extremity Sepsis A41.9 Sepsis acute organ dysfunction status: unspecified Sepsis type: sepsis due to unspecified organism Severe acute respiratory syndrome coronavirus 2 (SARS-CoV-2) detected U07.1 Diabetes E11.9 GERD (gastroesophageal reflux disease) K21.9 Hypertension I10 Hyperlipidemia E78.5 COVID-19 U07.1 Coronary artery disease I25.10 DVT prophylaxis Z29.9 (1) Cellulitis Laterality: left Site of cellulitis: extremity Site of cellulitis of extremity: lower extremity Qualified Code(s): L03.116 - Cellulitis of left lower limb (2) Sepsis Sepsis acute organ dysfunction status: unspecified Sepsis type: sepsis due to unspecified organism Qualified Code(s): A41.9 - Sepsis, unspecified organism
[2020-07-01] MEDS: ATORVASTATIN 20 MG TAB PO SCH (19:39)
[2020-07-01] MEDS ORDERED: VANCOMYCIN TROUGH ONE (23:30)
[2020-07-02] MEDS: VANCOMYCIN HCL 1,500 MG in SODIUM CHLORIDE 0.9% 500 ML IV SCH ×3 (00:18→21:41)
[2020-07-02] MEDS: PIPERACILLIN/TAZOBACTAM 3.375 GM in DEXTROSE 5% 100 ML IV SCH ×3 (02:24→18:33)
[2020-07-02] MEDS: ACETAMINOPHEN 325 MG TAB PO PRN ×3 (02:28→18:41)
[2020-07-02] MEDS: guaiFENesin/DEXTROM SYRUP 100MG/10MG 5ML UDC PO PRN ×4 (02:52→22:50)
[2020-07-02 07:10] LABS: BUN Creatinine Ratio 15.1 (10-20); Calcium 8.1 mg/dl (8.5-10.1); Est GFR (African American) 109.5; Est GFR (Non-African American) 94.5; Magnesium 1.7 mg/dl (1.8-2.4); Potassium 3.4 mmol/L (3.5-5.1)
[2020-07-02] MEDS: PANTOprazole 40 MG TAB PO SCH (08:17)
[2020-07-02] MEDS: CALCIUM 600MG + VIT D 400 IU TAB PO SCH ×2 (08:17→20:38)
[2020-07-02] MEDS: MAGNESIUM OXIDE 400 MG TAB PO SCH (08:17)
[2020-07-02] MEDS: ENOXAPARIN INJ 40 MG/0.4 ML SYR SQ SCH ×2 (08:18→20:37)
[2020-07-02] MEDS: INSULIN ASPART 100 UNITS/ML 3 ML PEN SC SCH ×4 (08:30→20:36)
[2020-07-02] MEDS: INSULIN GLARGINE SOLOSTAR 100 UNITS/ML 3 ML PEN SC SCH ×2 (08:30→20:36)
[2020-07-02] MEDS ORDERED: VANCOMYCIN TROUGH ONE (11:30)
--- NOTE | 2020-07-02 14:19 | Pharmacy Report ---
Pharmacy Abx Dose Short Note - Date of Service July 02, 2020 - Assessment & Plan Assessment 60 year old M receiving empiric vancomycin and Zosyn for treatment of lower extremity cellulitis/diabetic foot infection. Day # 3 of antimicrobial therapy. Blood cultures x 2: no growth at 48 hours Plan Vancomycin * Trough level of 11.3 mcg/mL is therapeutic, but on low end of therapeutic * Will change slightly to 1500 mg IV every 10 hours * Goal trough level for cellulitis : 10 to 20 mcg/mL * Trough or random level ordered for: 07/04/20 Zosyn * 3.375 g IV q8h - appropriate based on BMI, indication, and renal function Pharmacy will continue to follow and will adjust dose/frequency as necessary. Thank you.
--- NOTE | 2020-07-02 19:05 | Hospitalist Progress Note ---
Date of Service July 02, 2020 Assessment & Plan (1) Cellulitis: Vancomycin continues will likely de escalate for discharge Zosyn for diabetic foot infection Follow-up blood cultures negative to date Elevate extremity (2) Sepsis: Suspected source cellulitis Lactate 2.2, repeat pending Fluid resuscitation total 3L NSS bolus (weight: 100kg) Follow-up blood cultures negative to date (3) Severe acute respiratory syndrome coronavirus 2 (SARS-CoV-2) detected: Suspected asymptomatic. No pneumonia on chest x-ray. Isolation with airborne and droplet cautions. (4) Diabetes: [id number]-2.5 Hold metformin and insulin mix (usually takes 48 units) basal bolus with Lantus 15 units BID Novolog: Goal BSG Range: Low 110 mg/dL, High 140 mg/dL Correction Factor: 25 mg/dL/unit INS:CHO Ratio: 1unit per 9 gms CHO consumed BSGs ACHS if eating, q6h if npo (5) GERD (gastroesophageal reflux disease): continue formulary ppi (6) Hypertension: Hold antihypertensives given hypotension at the current time secondary to sepsis, sepsis now resolved and will follow bp (7) Hyperlipidemia: Continue atorvastatin (8) COVID-19: (9) Coronary artery disease: Quadruple CABG in 2008, stable since. Allergy to aspirin (presumably why he does not take this), unclear why he is not on clopidogrel or alternative antiplatelet. Held lisinopril due to sepsis Continue atorvastatin (10) DVT prophylaxis: Due to positive for SARS-CoV-2 even asymptomatic we will treat with increased dose of Lovenox 40 mg SQ twice daily Admission and Anticipated Discharge Date Admission Date: June 30, 2020 Subjective Patient feels his cellulitis continues to improve, he still has some discomfort in leg pain and swelling, he otherwise has no issues Review of Systems Review of Systems: Mild distress and fatigue no headache, blurry or double vision no speech or swallowing issues no chest pain, pressure or palpitations no shortness of breath, cough or wheezes no abdominal pain, nausea or vomiting, diarrhea or constipation no dysuria, hematuria or frequency no focal joint pain or swelling no back pain, CVA tenderness or radicular pain Erythema and swelling to the left leg now to the midshin tenderness to the left foot joints no focal signs of weakness with peripheral diabetic neuropathy no complaints of anxiety or depression. Physical Exam Physical Exam: The patient appeared well nourished and normally developed. BMI 33 mildly overweight Vital signs as documented. Head exam is normocephalic atraumatic no scleral icterus Neck is without JVD, thyromegaly, or carotid bruits. Lungs are clear to auscultation, no focal loss of breath sounds Cardiac exam, Rhythm is regular.. No murmurs, rubs or gallops. Abdominal exam reveals normal bowel sounds, soft non tender, no masses Extremities are edematous and erythema to left leg, with swelling and pain, no open areas Neurologic exam is alert and oriented, does have peripheral neuropathy Skin is with erythema and warmth with swelling to foot Psychologically is without concerns for anxiety or depression. Results & Data Results & Data ([facility]) Vital Signs (Past 12 Hours) Vital Signs Temp Pulse Pulse Resp BP BP Pulse Ox 07/02/20 15:49 98.2 F 94 H 17 107/69 96 07/02/20 08:18 98.6 F 87 20 105/72 99 07/02/20 08:00 83 PG Care Time/CCT Total # of Minutes Spent Total Time Spent with Patient: Total time spent is greater than 50% in coordination of care (as documented) at patient's floor/unit and/or counseling patient: Coding Level of Care Code 31900 Subseq Hosp Care Lvl 2 Diagnoses Cellulitis L03.116 Laterality: left Site of cellulitis: extremity Site of cellulitis of extremity: lower extremity Sepsis A41.9 Sepsis acute organ dysfunction status: unspecified Sepsis type: sepsis due to unspecified organism Severe acute respiratory syndrome coronavirus 2 (SARS-CoV-2) detected U07.1 Diabetes E11.9 GERD (gastroesophageal reflux disease) K21.9 Hypertension I10 Hyperlipidemia E78.5 COVID-19 U07.1 Coronary artery disease I25.10 DVT prophylaxis Z29.9 (1) Cellulitis Laterality: left Site of cellulitis: extremity Site of cellulitis of extremity: lower extremity Qualified Code(s): L03.116 - Cellulitis of left lower limb (2) Sepsis Sepsis acute organ dysfunction status: unspecified Sepsis type: sepsis due to unspecified organism Qualified Code(s): A41.9 - Sepsis, unspecified organism
[2020-07-02] MEDS: ATORVASTATIN 20 MG TAB PO SCH (20:38)
[2020-07-03] MEDS: ACETAMINOPHEN 325 MG TAB PO PRN ×2 (01:40→08:01)
[2020-07-03] MEDS: PIPERACILLIN/TAZOBACTAM 3.375 GM in DEXTROSE 5% 100 ML IV SCH ×2 (02:23→10:26)
[2020-07-03] MEDS: guaiFENesin/DEXTROM SYRUP 100MG/10MG 5ML UDC PO PRN (08:02)
[2020-07-03] MEDS: VANCOMYCIN HCL 1,500 MG in SODIUM CHLORIDE 0.9% 500 ML IV SCH (08:03)
[2020-07-03] MEDS: MAGNESIUM OXIDE 400 MG TAB PO SCH (08:04)
[2020-07-03] MEDS: CALCIUM 600MG + VIT D 400 IU TAB PO SCH (08:04)
[2020-07-03] MEDS: ENOXAPARIN INJ 40 MG/0.4 ML SYR SQ SCH (08:04)
[2020-07-03] MEDS: PANTOprazole 40 MG TAB PO SCH (08:04)
[2020-07-03] MEDS: INSULIN GLARGINE SOLOSTAR 100 UNITS/ML 3 ML PEN SC SCH (08:30)
[2020-07-03] MEDS: INSULIN ASPART 100 UNITS/ML 3 ML PEN SC SCH ×2 (08:30→13:00)
--- NOTE | 2020-07-03 15:12 | Discharge Summary ---
Date of Service July 03, 2020 Admission HPI Per Admitting Provider Al Hall is a 60 year old male with CAD and T2DM who presents to the ER from [facility] with 4-5 days worsening leg cellulitis. He reports first noticing it 4-5 days ago in his feet [facility] but is unsure how it happened. [facility] only told the [facility] team about it today and sent him to the ER for evaluation. He denies any fever or chills. Able to feel his toes b/l. Never had MRSA infections or recurrent cellulitis previously. In the ER subsequent SARS-COV-2 PCR positive. The patient reports having mild nasal congestion for the last month but nothing acute in the last 1-2 week. No shortness of breath, loss of taste or smell, diarrhea, abdominal pain, sore throat, headache, generalized myalgias. Principal Diagnosis diabetic leg infection covid infection Discharge Exam The patient appeared well Vital signs as documented. Lungs are clear to auscultation and appear unlabored( noted to be clear wtih covid dx) Cardiac exam, Rhythm is regular.. No murmurs, rubs or gallops. Abdominal exam reveals normal bowel sounds, soft non tender, no masses Extremity on the left is with receding erythema foot is not normal color on the great toe side Neurologic exam is alert and oriented, peripheral diabetic neupropathy Psychologically is without concerns for anxiety or depression. Discharge Data Allergies Allergy/AdvReac Type Severity Reaction Status Date / Time aspirin Allergy hives Verified 06/30/20 10:28 Consultations 06/30/20 11:24 ED Decision to Admit Stat Hospital Course (1) Cellulitis: will dishcarge on 11 days of augmentin, to complete 14 day course noted that the pt was on vancomycin and if leg worsens to consider addition or change to linezolid po Follow-up blood cultures negative to date Elevate extremity as much as able (2) Sepsis: resolved Follow-up blood cultures negative to date (3) Diabetes: [id number] metformin and insulin mix (usually takes 48 units) (4) GERD (gastroesophageal reflux disease): continue ppi (5) Hypertension: blood pressure was low while here so both antihypertensives were reduced (6) Hyperlipidemia: Continue atorvastatin (7) COVID-19: (8) Coronary artery disease: Quadruple CABG in 2008, stable since. Allergy to aspirin (presumably why he does not take this), unclear why he is not on clopidogrel or alternative antiplatelet. resume metoprolol and lisinopril Continue atorvastatin Total Time Total Time Spent Total Time Spent (In Minutes): > 30 minutes were required to make this discharge Discharge Plan Discharge Items [facility] Reason For Visit: SEPSIS, SARS- COV2 POSITIVE Discharge Diagnosis: diabetic foot infection covid 19 infection without cxr changes or pulmonary symptoms Activity: Per Instructions section Activity Comment: elevate leg as much as possible, Non-emergency contact: Primary Care Provider Call non-emergency contact if: your symptoms worsen Follow-up/Referrals: Simi PLUMMER [Primary Care Provider] - Diet: Carb Consistent or DM2 Addtl Attending Provider Instructions: Please evaluate the leg as is continuing augmentin by mouth, was on vancomycin and zosyn while inpatient. blood cultures have been negative, if this changes will call with update. Elevate leg as much as able pt is with + covid test but has a negative cxr and no pulmonary sx nor oxygen supplementation need Pending Studies at Discharge: No Stand-Alone Forms: My [facility] Skilled Items Patient informed of condition?: Yes Discharge Level of Care: Other Communicable Disease: Yes Discharge Prognosis: Stable Lines: None Urinary Catheter: No Medications and DC Order Prescriptions: New amoxicillin-pot clavulanate [Augmentin] 875-125 mg tablet 1 tab PO BID Qty: 22 RF: 0 Continued atorvastatin 20 mg Tablet 20 mg PO HS RF: 0 omeprazole 40 mg Capsule,Delayed Release(Dr/Ec) 40 mg PO QAM RF: 0 glucose 4 gram Tablet,Chewable 4 g PO BID RF: 0 nitroglycerin [Nitrostat] 0.4 mg Tablet, Sublingual 0.4 mg sublingual UD RF: 0 metformin 500 mg Tablet Extended Release 24 Hr 500 mg PO BID RF: 0 Novolin 70-30 FlexPen U-100 100 unit/mL (70-30) Insulin Pen 24 unit SUBCUT BID RF: 0 calcium carbonate-vitamin D3 [Calcium 600 + D(3)] 600 mg(1,500mg) -400 unit Tablet 1 tab PO BID RF: 0 Changed lisinopril 40 mg Tablet 10 mg PO QAM Qty: 0 RF: 0 metoprolol tartrate 25 mg Tablet 12.5 mg PO BID Qty: 0 RF: 0 Discharge Orders: Discharge Order (Routine); Ordered 07/03/20 Ordered By: Emanuel Abad Admission Data Admit Date/Time: 06/30/20 11:46 Attending Provider: Emanuel Abad Admit Provider: Jose Daniel Abreu Primary Care Provider: Simi PLUMMER Other Providers: Jose Daniel Abreu Coding Level of Care Code D/C Day Management >30 mins Diagnoses Cellulitis L03.116 Laterality: left Site of cellulitis: extremity Site of cellulitis of extremity: lower extremity Sepsis A41.9 Sepsis acute organ dysfunction status: unspecified Sepsis type: sepsis due to unspecified organism Diabetes E11.9 GERD (gastroesophageal reflux disease) K21.9 Hypertension I10 Hyperlipidemia E78.5 COVID-19 U07.1 Coronary artery disease I25.10
[2020-07-04] MEDS ORDERED: VANCOMYCIN TROUGH ONE (03:30)
== END 2020-07-03 16:23 | DRG 871 ==
LOC: ED 09:27 → SUATTDRO 11:46 → 2S 11:46

== ENCOUNTER 2021-12-13 17:33 | Inpatient (IN) ==
[2021-12-13] MEDS ORDERED: VANCOMYCIN CONSULT ACTIVE PRN ×2 (18:06→22:44)
[2021-12-13] MEDS ORDERED: VANCOMYCIN HCL 2,000 MG in SODIUM CHLORIDE 0.9% 500 ML IV ONE (18:06)
[2021-12-13] MEDS ORDERED: CEFEPIME 2,000 MG/20 ML VIAL IV STA (18:06)
[2021-12-13] MEDS ORDERED: SODIUM CHLORIDE 0.9% 1000ML 1,000 ML IV ONE (18:08)
[2021-12-13] MEDS ORDERED: IBUPROFEN 600 MG TAB PO STA (18:10)
--- NOTE | 2021-12-13 18:11 | Emergency Department Note ---
Impression & Plan Cellulitis of left leg, Sepsis, Hypomagnesemia ED Provider Note Provider: Leobardo Bergman MD DATE OF SERVICE: 12/13/2021 CHIEF COMPLAINT: Dysuria, left leg infection HISTORY OF PRESENT ILLNESS: Patient is a 61-year-old gentleman history of CAD status post CABG and type 2 diabetes [facility] with several days of worsening left leg cellulitis. States has been going on for several days but just reported to the medical staff at the present today. Denies significant trauma. Denies wounds. States he has an infection here before. Reports he may have been a little bit confused earlier. Long Term report states the patient had little bit confusion earlier but was febrile and tachycardic prior to arrival. Patient reports some pain to the brown but denies other pain. Was nauseous prior to arrival received Zofran. Denies abdominal pain or nausea upon my assessment. Denies headache or any chest pain or shortness of breath. Patient relates he had prior vein harvesting from this leg in the past. Patient relays several days ago he did an ultrasound did not show evidence of a blood clot although I do not have documentation of this. Patient reports some Tylenol just prior to transfer. REVIEW OF SYSTEMS: A total of 10 review of systems was obtained and negative except as stated above in the HPI. PAST MEDICAL HISTORY: As noted above MEDICATIONS: Reviewed medical records from the hospital SOCIAL HISTORY: Prisoner at [facility] PHYSICAL EXAM: GENERAL: alert and oriented in no acute distress on stretcher guards at bedside . Head: normocephalic and atraumatic EYES: No injection, discharge or icterus. NECK: Trachea midline. ENT: Mucous membranes pink and moist. LUNGS: Airway patent. No retractions. Breath sounds clear with good air entry bilaterally. HEART: Regular tachycardic rate and rhythm. No chest wall tenderness with healed midline surgical scar. ABDOMEN: Soft and non-tender, without guarding or rebound. SKIN: Acyanotic, warm, mildly diaphoretic EXTREMITIES: Without swelling, tenderness or deformity the right lower extremity the left lower extremity is warm and erythematous from left ankle to the left knee circumferentially without large open wound. No crepitus appreciated. Soft compartments with mild tenderness. No significant large open wound noted on the left foot. NEUROLOGICAL: No focal deficits. No aphasia. No facial droop or slurred speech. Normal strength and tone in the extremities. Sensation to gross touch normal. EK bpm sinus tachycardia. No PVC or PAC. No acute ST segment elevation or depression with a QTC of 428. Some baseline artifact due to respiratory variation noted. CONTINUOUS CARDIAC MONITORING: was ordered and showed a heart rate of 80s-120s bpm in sinus tachycardia normal sinus Patient's laboratory studies and imaging reviewed. Differential includes Cellulitis, abscess, MRSA infection, DVT, necrotizing fasciitis, dermatitis, drug eruption, allergic reaction, as well as other pathologies. IMPRESSION/MEDICAL DECISION MAKING: Patient history of diabetes and cellulitis now febrile and tachycardic upon arrival with concern for sepsis related to left lower leg cellulitis. Lower suspicion for DVT given the infectious symptomatologies. Denies significant chest pain or shortness of breath. Denies any abdominal pain. Some nausea and relatively likely related to his general systemic illness. Ordered a total of 3 L of IV fluid and broad-spectrum antibiotics as well as vancomycin given risk factors for MRSA with his incarceration. White blood cell count is significantly elevated. Hypomagnesemia is noted. Procalcitonin elevated as is lactate to some degree. Believe further care here at the hospital is indicated and discussed with the hospitalist. DIAGNOSIS: Left lower extremity cellulitis, sepsis, hypomagnesemia DISPOSITION: Hospitalist will evaluate Patient was agreeable with this plan. 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 Beliefs That Will Affect Care: None Current Living Situation: Other Current Living Situation Comment: [facility] Prisoner Feels Safe at Home: Yes Assistive Devices: Denture - Upper, Denture - Lower and Glasses Assistive Devices Comment: glasses at bedside, dentures are not with pt Allergies Allergies Allergy/AdvReac Type Severity Reaction Status Date / Time aspirin Allergy Intermediate Hives Verified 12/13/21 17:56 Home Meds Home Medications Medication Instructions Recorded Confirmed atorvastatin 20 mg tablet 20 mg PO HS 06/30/20 12/13/21 calcium carbonate 600 mg-vitamin 1 tab PO BID 06/30/20 12/13/21 D3 10 mcg (400 unit) tablet (Calcium 600 + D(3)) glucose 4 gram chewable tablet 4 g PO BID 06/30/20 12/13/21 insulin NPH-regular 70-30 U-100 See Rx Instructions .ROUTE .COMPLEX 06/30/20 12/13/21 insulin 100 unit/mL subcutaneous pen (Novolin 70-30 FlexPen U-100 Insulin) amlodipine 10 mg tablet 10 mg PO DAILY 12/13/21 12/13/21 lisinopril 10 mg tablet 10 mg PO DAILY 12/13/21 12/13/21 metformin 500 mg tablet 500 mg PO BID 12/13/21 12/13/21 pantoprazole 40 mg tablet,delayed 40 mg PO DAILY 12/13/21 12/13/21 release triamcinolone acetonide 0.1 % 1 applic TOPICAL BID 12/13/21 12/13/21 topical cream vitamin E 1 applic TOPICAL TID 12/13/21 12/13/21 Previous Rx's Medication Instructions Recorded metoprolol tartrate 25 mg tablet 12.5 mg PO BID #0 tab 07/03/20 Results & Data (ED) Vital Signs Vital Signs - 24 hr 12/13/21 17:41 12/13/21 17:45 12/13/21 17:52 Temperature 38.6 C H Temperature Source Oral Pulse Rate 120 H 115 H 117 H Pulse Rate [Apical] Pulse Rate from SpO2 Sensor 120 H 116 H Pulse Rhythm [Apical] Respiratory Rate 20 29 H 23 Respiratory Effort / Characteristics Respiratory Depth Blood Pressure 143/70 H Blood Pressure [Left Arm] Blood Pressure Mean 94 Blood Pressure Mean [Left Arm] Pulse Oximetry 97 97 96 Oxygen Delivery Method Room Air Sepsis Recent Fever Within 48 Hours Yes Sepsis New/Unexplained Change in Mental Status No Sepsis Action Taken by Nursing Physician Notified 12/13/21 18:00 12/13/21 18:06 12/13/21 18:15 Temperature Temperature Source Pulse Rate 110 H 106 H Pulse Rate [Apical] 100 H Pulse Rate from SpO2 Sensor 110 H 107 H Pulse Rhythm [Apical] Respiratory Rate 22 20 29 H Respiratory Effort / Characteristics Non-Labored Respiratory Depth Normal Blood Pressure Blood Pressure [Left Arm] 143/70 H Blood Pressure Mean Blood Pressure Mean [Left Arm] 94 Pulse Oximetry 96 95 97 Oxygen Delivery Method Room Air Sepsis Recent Fever Within 48 Hours Sepsis New/Unexplained Change in Mental Status Sepsis Action Taken by Nursing 12/13/21 18:30 12/13/21 18:36 12/13/21 18:45 Temperature Temperature Source Pulse Rate 104 H 103 H Pulse Rate [Apical] Pulse Rate from SpO2 Sensor 104 H 103 H Pulse Rhythm [Apical] Respiratory Rate 16 20 19 Respiratory Effort / Characteristics Non-Labored Respiratory Depth Blood Pressure Blood Pressure [Left Arm] Blood Pressure Mean Blood Pressure Mean [Left Arm] Pulse Oximetry 97 97 Oxygen Delivery Method Room Air Sepsis Recent Fever Within 48 Hours Sepsis New/Unexplained Change in Mental Status Sepsis Action Taken by Nursing 12/13/21 18:48 12/13/21 19:00 12/13/21 19:06 Temperature Temperature Source Pulse Rate 105 H 104 H Pulse Rate [Apical] 97 H Pulse Rate from SpO2 Sensor 104 H 104 H Pulse Rhythm [Apical] Regular Respiratory Rate 21 25 H 20 Respiratory Effort / Characteristics Non-Labored Spontaneous Respiratory Depth Normal Blood Pressure 122/69 116/56 L Blood Pressure [Left Arm] 115/68 Blood Pressure Mean 86 76 Blood Pressure Mean [Left Arm] 83 Pulse Oximetry 95 97 95 Oxygen Delivery Method Room Air Sepsis Recent Fever Within 48 Hours Sepsis New/Unexplained Change in Mental Status Sepsis Action Taken by Nursing 12/13/21 19:15 12/13/21 19:30 12/13/21 19:45 Temperature Temperature Source Pulse Rate 100 H 97 H 95 H Pulse Rate [Apical] Pulse Rate from SpO2 Sensor 101 H 98 H 94 H Pulse Rhythm [Apical] Respiratory Rate 23 26 H 27 H Respiratory Effort / Characteristics Non-Labored Spontaneous Respiratory Depth Blood Pressure 125/70 115/68 91/67 L Blood Pressure [Left Arm] Blood Pressure Mean 88 83 75 Blood Pressure Mean [Left Arm] Pulse Oximetry 97 98 96 Oxygen Delivery Method Room Air Sepsis Recent Fever Within 48 Hours Sepsis New/Unexplained Change in Mental Status Sepsis Action Taken by Nursing 12/13/21 20:00 12/13/21 20:15 12/13/21 20:30 Temperature Temperature Source Pulse Rate 94 H 90 89 Pulse Rate [Apical] Pulse Rate from SpO2 Sensor 94 H 89 89 Pulse Rhythm [Apical] Respiratory Rate 22 22 20 Respiratory Effort / Characteristics Respiratory Depth Blood Pressure 111/60 109/52 L 108/58 L Blood Pressure [Left Arm] Blood Pressure Mean 77 71 74 Blood Pressure Mean [Left Arm] Pulse Oximetry 97 97 98 Oxygen Delivery Method Sepsis Recent Fever Within 48 Hours Sepsis New/Unexplained Change in Mental Status Sepsis Action Taken by Nursing 12/13/21 20:45 12/13/21 21:00 Temperature Temperature Source Pulse Rate 93 H 90 Pulse Rate [Apical] Pulse Rate from SpO2 Sensor 94 H 90 Pulse Rhythm [Apical] Respiratory Rate 21 17 Respiratory Effort / Characteristics Respiratory Depth Blood Pressure 118/66 104/57 L Blood Pressure [Left Arm] Blood Pressure Mean 83 72 Blood Pressure Mean [Left Arm] Pulse Oximetry 97 97 Oxygen Delivery Method Sepsis Recent Fever Within 48 Hours Sepsis New/Unexplained Change in Mental Status Sepsis Action Taken by Nursing Laboratory Data Result diagrams: 12/13/21 18:12 12/13/21 18:12 Lab Results 12/13/21 12/13/21 12/13/21 Range/Units 18:12 18:12 18:12 WBC 20.28 H (4.8-10.8) K/uL RBC 4.66 L (4.7-6.1) M/uL Hgb 14.2 (14.0-18.0) g/dL Hct 40.5 L (42-52) % MCV 86.9 (80-100) fL MCH 30.5 (25-34) pg MCHC 35.1 (32-36) g/dL RDW Std Deviation 40.1 (36.4-46.3) fL RDW Coeff of Norbert 12.6 (11.5-14.5) % Plt Count 236 (130-400) K/uL MPV 10.2 (7.4-10.4) fL Immature Gran % (Auto) 0.5 % Neut % (Auto) 90.5 % Lymph % (Auto) 3.8 % [place] % (Auto) 5.2 % Eos % (Auto) 0.0 % Baso % (Auto) 0.0 % Neut # (Auto) 18.34 H (1.4-6.5) K/uL Lymph # (Auto) 0.77 L (1.2-3.4) K/uL [place] # (Auto) 1.06 H (0.11-0.59) K/uL Eos # (Auto) 0.00 (0-0.5) K/uL Baso # (Auto) 0.01 (0-0.2) K/uL Immature Gran # (Auto) 0.10 H (0.00-0.02) K/uL PT 12.4 H (9.0-12.0) Seconds INR 1.2 H (0.9-1.1) APTT 25.4 (21.0-31.0) Seconds PTT Ratio 0.9 Sodium 132 L (136-145) mmol/L Potassium 3.9 (3.5-5.1) mmol/L Chloride 101 (98-107) mmol/L Carbon Dioxide 22 (21-32) mmol/L Anion Gap 9 (3-11) BUN 19 (6-23) mg/dl Creatinine 1.06 (0.6-1.4) mg/dl Est Cr Clr Drug Dosing 83.8 ml/min Est GFR ( Amer) 88.0 ml/min Est GFR (Non-Af Amer) 75.9 ml/min BUN/Creatinine Ratio 17.9 (10-20) Glucose 196 H (70-99(Fasting)) mg/dl Lactate (0.4-2.0) mmol/L Calcium 8.4 L (8.5-10.1) mg/dl Magnesium 1.2 L (1.7-2.4) mg/dl Total Bilirubin 0.9 (0.2-1.0) mg/dl AST 19 (13-39) U/L ALT 24 (7-52) U/L Alkaline Phosphatase 67 (34-104) U/L Troponin I High Sens 17.4 (0-20) pg/ml Total Protein 6.7 (6.0-8.3) gm/dl Albumin 3.5 (3.4-5.0) gm/dl Globulin 3.2 (2.5-4.0) gm/dl Albumin/Globulin Ratio 1.1 (0.9-2) Procalcitonin (0-0.5) ng/ml SARS-CoV-2, RNA, NAAT (NEGATIVE) 12/13/21 12/13/21 12/13/21 Range/Units 18:12 18:12 18:22 WBC (4.8-10.8) K/uL RBC (4.7-6.1) M/uL Hgb (14.0-18.0) g/dL Hct (42-52) % MCV (80-100) fL MCH (25-34) pg MCHC (32-36) g/dL RDW Std Deviation (36.4-46.3) fL RDW Coeff of Norbert (11.5-14.5) % Plt Count (130-400) K/uL MPV (7.4-10.4) fL Immature Gran % (Auto) % Neut % (Auto) % Lymph % (Auto) % [place] % (Auto) % Eos % (Auto) % Baso % (Auto) % Neut # (Auto) (1.4-6.5) K/uL Lymph # (Auto) (1.2-3.4) K/uL [place] # (Auto) (0.11-0.59) K/uL Eos # (Auto) (0-0.5) K/uL Baso # (Auto) (0-0.2) K/uL Immature Gran # (Auto) (0.00-0.02) K/uL PT (9.0-12.0) Seconds INR (0.9-1.1) APTT (21.0-31.0) Seconds PTT Ratio Sodium (136-145) mmol/L Potassium (3.5-5.1) mmol/L Chloride (98-107) mmol/L Carbon Dioxide (21-32) mmol/L Anion Gap (3-11) BUN (6-23) mg/dl Creatinine (0.6-1.4) mg/dl Est Cr Clr Drug Dosing ml/min Est GFR ( Amer) ml/min Est GFR (Non-Af Amer) ml/min BUN/Creatinine Ratio (10-20) Glucose (70-99(Fasting)) mg/dl Lactate 2.9 H* (0.4-2.0) mmol/L Calcium (8.5-10.1) mg/dl Magnesium (1.7-2.4) mg/dl Total Bilirubin (0.2-1.0) mg/dl AST (13-39) U/L ALT (7-52) U/L Alkaline Phosphatase (34-104) U/L Troponin I High Sens (0-20) pg/ml Total Protein (6.0-8.3) gm/dl Albumin (3.4-5.0) gm/dl Globulin (2.5-4.0) gm/dl Albumin/Globulin Ratio (0.9-2) Procalcitonin 11.41 H (0-0.5) ng/ml SARS-CoV-2, RNA, NAAT NEGATIVE (NEGATIVE) 12/13/21 Range/Units 20:26 WBC (4.8-10.8) K/uL RBC (4.7-6.1) M/uL Hgb (14.0-18.0) g/dL Hct (42-52) % MCV (80-100) fL MCH (25-34) pg MCHC (32-36) g/dL RDW Std Deviation (36.4-46.3) fL RDW Coeff of Norbert (11.5-14.5) % Plt Count (130-400) K/uL MPV (7.4-10.4) fL Immature Gran % (Auto) % Neut % (Auto) % Lymph % (Auto) % [place] % (Auto) % Eos % (Auto) % Baso % (Auto) % Neut # (Auto) (1.4-6.5) K/uL Lymph # (Auto) (1.2-3.4) K/uL [place] # (Auto) (0.11-0.59) K/uL Eos # (Auto) (0-0.5) K/uL Baso # (Auto) (0-0.2) K/uL Immature Gran # (Auto) (0.00-0.02) K/uL PT (9.0-12.0) Seconds INR (0.9-1.1) APTT (21.0-31.0) Seconds PTT Ratio Sodium (136-145) mmol/L Potassium (3.5-5.1) mmol/L Chloride (98-107) mmol/L Carbon Dioxide (21-32) mmol/L Anion Gap (3-11) BUN (6-23) mg/dl Creatinine (0.6-1.4) mg/dl Est Cr Clr Drug Dosing ml/min Est GFR ( Amer) ml/min Est GFR (Non-Af Amer) ml/min BUN/Creatinine Ratio (10-20) Glucose (70-99(Fasting)) mg/dl Lactate 2.8 H* (0.4-2.0) mmol/L Calcium (8.5-10.1) mg/dl Magnesium (1.7-2.4) mg/dl Total Bilirubin (0.2-1.0) mg/dl AST (13-39) U/L ALT (7-52) U/L Alkaline Phosphatase (34-104) U/L Troponin I High Sens (0-20) pg/ml Total Protein (6.0-8.3) gm/dl Albumin (3.4-5.0) gm/dl Globulin (2.5-4.0) gm/dl Albumin/Globulin Ratio (0.9-2) Procalcitonin (0-0.5) ng/ml SARS-CoV-2, RNA, NAAT (NEGATIVE) Administered Medications Discontinued Medications Lactated Ringer's (Lr) 1,000 mls @ 999 mls/hr IV .Q1H1M PRASAD Stop: 12/13/21 20:15 Last Admin: 12/13/21 20:31 Dose: 999 mls/hr Documented by: [id number] Lactated Ringer's (Lr) 1,000 mls @ 999 mls/hr IV .Q1H1M PRASAD Stop: 12/13/21 19:07 Last Infusion: 12/13/21 19:58 Dose: 0 mls/hr Documented by: [id number] Admin: 12/13/21 19:00 Dose: 999 mls/hr Documented by: [id number] Cefepime HCl (Maxipime) 2,000 mg in 20 mls @ 5 mls/min IV NOW STA; Protocol Stop: 12/13/21 18:09 Last Admin: 12/13/21 18:55 Dose: 5 mls/min Documented by: [id number] Vancomycin HCl 2,000 mg/ (Sodium Chloride) 540 mls @ 200 mls/hr IV NOW ONE Stop: 12/13/21 20:47 Last Admin: 12/13/21 19:15 Dose: 200 mls/hr Documented by: [id number] Sodium Chloride (Nss 1000ml) 1,000 mls @ 999 mls/hr IV .Q1H1M ONE Stop: 12/13/21 19:08 Last Infusion: 12/13/21 19:51 Dose: 0 mls/hr Documented by: [id number] Admin: 12/13/21 18:51 Dose: 999 mls/hr Documented by: [id number] Magnesium Sulfate/Dextrose (Magnesium Sulfate / D5w) 1 gm in 100 mls @ 200 mls/hr IV Q30M PRASAD Stop: 12/13/21 19:54 Last Admin: 12/13/21 20:30 Dose: 200 mls/hr Documented by: [id number] Infusion: 12/13/21 20:28 Dose: 200 mls/hr Documented by: [id number] Admin: 12/13/21 19:58 Dose: 200 mls/hr Documented by: [id number] Ibuprofen (Ibuprofen 600 Mg Tab) 600 mg PO NOW STA Stop: 12/13/21 18:11 Last Admin: 12/13/21 18:54 Dose: 600 mg Documented by: [id number] Imaging Data Radiologist's Impression: Chest X-Ray 12/13/21 18:06 XR chest 1V portable CLINICAL HISTORY: SEPSIS TECHNIQUE: Single frontal radiograph of the chest was obtained. Comparison: Comparison is made to chest radiograph 06/30/2020 FINDINGS: Median sternotomy wires are unchanged. The cardiomediastinal silhouette is normal. The lungs are clear. No evidence of pleural effusion or pneumothorax. IMPRESSION: No acute chest disease. ACT 112: Negative or not required by law. Electronically signed by: Sharif Tena M.D. 12/13/2021 7:15 PM Discharge Plan Visit Data Chief Complaint: Infection Stated Complaint: CELLULITIS, NAUSEA ED Provider: Leobardo Bergman Discharge Problem: Cellulitis of left leg, Sepsis, Hypomagnesemia Patient Disposition: Admitted As Inpatient Discharge Instructions Interventions: ED Discharge Assessment Last Done: 12/13/21 22:09 Discharge Problem: Sepsis Qualifiers: Sepsis type: sepsis due to unspecified organism Sepsis acute organ dysfunction status: without acute organ dysfunction Qualified Code(s): A41.9 - Sepsis, unspecified organism
[2021-12-13] MEDS ORDERED: LACTATED RINGER'S 1,000 ML IV SCH ×2 (18:15→19:15)
[2021-12-13 18:25] LABS: Basophils # (auto) 0.01 K/uL (0-0.2); Hematocrit (blood only) 40.5 % (42-52); Hemoglobin 14.2 g/dL (14.0-18.0); Immature Granulocytes % (auto) 0.5 %; Lymphocytes # (auto) 0.77 K/uL (1.2-3.4); Lymphocytes % (auto) 3.8 %; Mean Corpuscular Hemoglobin 30.5 pg (25-34); Mean Corpuscular Hgb Conc 35.1 g/dL (32-36); Mean Corpuscular Volume 86.9 fL (80-100); Mean Platelet Volume 10.2 fL (7.4-10.4); Monocytes # (auto) 1.06 K/uL (0.11-0.59); Monocytes % (auto) 5.2 %; Neutrophils # (auto) 18.34 K/uL (1.4-6.5); Neutrophils % (auto) 90.5 %; Platelet Count 236 K/uL (130-400); RDW Coefficient of Variation 12.6 % (11.5-14.5); RDW Standard Deviation 40.1 fL (36.4-46.3); Red Blood Count 4.66 M/uL (4.7-6.1); White Blood Count 20.28 K/uL (4.8-10.8)
[2021-12-13 18:36] LABS: INR 1.2 (0.9-1.1); Partial Thromboplastin Ratio 0.9; Partial Thromboplastin Time 25.4 Seconds (21.0-31.0); Prothrombin Time 12.4 Seconds (9.0-12.0)
[2021-12-13 18:44] LABS: Albumin Globulin Ratio 1.1 (0.9-2); Albumin Level 3.5 gm/dl (3.4-5.0); BUN Creatinine Ratio 17.9 (10-20); Bilirubin,Total 0.9 mg/dl (0.2-1.0); Calcium 8.4 mg/dl (8.5-10.1); Creatinine Clr Calc Pharmacy 83.8 ml/min; Est GFR (Non-African American) 75.9 ml/min; Globulin 3.2 gm/dl (2.5-4.0); Magnesium 1.2 mg/dl (1.7-2.4); Potassium 3.9 mmol/L (3.5-5.1); Total Protein 6.7 gm/dl (6.0-8.3)
[2021-12-13 18:49] LABS: Troponin I High Sensitivity 17.4 pg/ml (0-20)
--- NOTE | 2021-12-13 19:17 | XRay Report ---
XR chest 1V portable CLINICAL HISTORY: SEPSIS TECHNIQUE: Single frontal radiograph of the chest was obtained. Comparison: Comparison is made to chest radiograph 06/30/2020 FINDINGS: Median sternotomy wires are unchanged. The cardiomediastinal silhouette is normal. The lungs are denny r. No evidence of pleural effusion or pneumothorax. IMPRESSION: No acute chest disease. ACT 112: Negative or not required by law. Electronically signed by: Sharif Tena M.D. 12/13/2021 7:15 PM
--- NOTE | 2021-12-13 19:40 | History & Physical Report ---
Date of Service December 13, 2021 Assessment & Plan (1) Sepsis: Plan: - Suspected source is his left leg cellulitis - Lactate 2.9, repeat pending - Received 3L NSS in ED. Continue with LRs @ 80 cc/hr. - Started on vancomycin and cefepime in ED, will continue empirically on this for now. - Blood cultures ordered, sent. follow-up. (2) Cellulitis of left leg: Plan: - As above. Elevate leg. - Per patient, the staff at group home performed a venous doppler to assess for DVT and this was negative. Do not have these records, however my suspicion for DVT/PE is low. As to not duplicate this study, will hold off on ordering it for now, can contact group home tomorrow AM for copies of results. (3) Hypomagnesemia: Plan: - 1.2, will replete and recheck in AM. (4) Diabetes: Plan: - Hold metformin and insulin mix. - Switch to Lantus 15 units BID - Accu-Cheks ACHS with sliding scale insulin. - Heart healthy/diabetic diet. - A1c in AM. (5) Coronary artery disease: Plan: - CABG x4 in 2008. - Not on aspirin, has allergy to this, not on antiplatelet therapy. - Continue statin, antihypertensives as BP able to tolerate it. (6) Hypertension: Plan: - Takes amlodipine 10 mg daily, lisinopril 10 mg daily, metoprolol 12.5 mg twice daily. - Normotensive now, continue to monitor BP and consider holding these tomorrow a.m. if BP soft in setting of sepsis, however would give if pressure will tolerate. (7) Hyperlipidemia: Plan: - Continue atorvastatin 20 mg daily. (8) GERD (gastroesophageal reflux disease): Plan: - Continue PPI. Plan: - Admit to med/surg. - SCDs, Lovenox for DVT PPx. - Full code. History of Present Illness Chief Complaint: left leg cellulitis Primary Care Provider: ELIAN Belcher Mr. Barron is a 61-year-old male with past medical history of CAD s/p CABG in 2008, hypertension, hyperlipidemia, diabetes, and GERD who presents today for worsening left leg infection. He noticed his leg was turning red-purple several weeks ago, however did not mention it to staff at the group home until today. He is unsure how it happened, no inciting injury or open wound. He has had some pain at the site, but able to feel his toes, no numbness/tingling or immobility. He has not noticed fever/chills, SOB, chest pain, palpitations. He has been able to ambulate on it without pain. In ED, he presents tachycardic with heart rate 117, temperature of 101.4, otherwise vital signs within normal limits and stable. Labs significant for WBC 20.28, lactate 2.9, procalcitonin 11.41. Sodium 132, glucose 196, magnesium 1.2. CXR without acute findings. Allergies Allergy/AdvReac Type Severity Reaction Status Date / Time aspirin Allergy Intermediate Hives Verified 12/13/21 17:56 Home Medications Medication Instructions Recorded Confirmed Type atorvastatin 20 mg tablet 20 mg PO HS 06/30/20 12/13/21 History calcium carbonate 600 mg-vitamin 1 tab PO BID 06/30/20 12/13/21 History D3 10 mcg (400 unit) tablet (Calcium 600 + D(3)) glucose 4 gram chewable tablet 4 g PO BID 06/30/20 12/13/21 History insulin NPH-regular 70-30 U-100 See Rx Instructions .ROUTE .COMPLEX 06/30/20 12/13/21 History insulin 100 unit/mL subcutaneous pen (Novolin 70-30 FlexPen U-100 Insulin) metoprolol tartrate 25 mg tablet 12.5 mg PO BID #0 tab 07/03/20 12/13/21 Rx amlodipine 10 mg tablet 10 mg PO DAILY 12/13/21 12/13/21 History lisinopril 10 mg tablet 10 mg PO DAILY 12/13/21 12/13/21 History metformin 500 mg tablet 500 mg PO BID 12/13/21 12/13/21 History pantoprazole 40 mg tablet,delayed 40 mg PO DAILY 12/13/21 12/13/21 History release triamcinolone acetonide 0.1 % 1 applic TOPICAL BID 12/13/21 12/13/21 History topical cream vitamin E 1 applic TOPICAL TID 12/13/21 12/13/21 History Past Med/Surg History Medical History Constipation Coronary artery disease Diabetes Hyperlipidemia Hypertension No pertinent family history Surgical History History of coronary artery bypass graft 2009 quadruple No pertinent past surgical history Social History Smoking Status: Former smoker Smoking End Date: 6 yrs; Second Hand Exposure: No; Do You Dip or Chew Tobacco: No; Hx Alcohol Use: No Hx Substance Use: No Preferred Language: Nepalese Communication Ability: Effective 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 Beliefs That Will Affect Care: None Current Living Situation: Other Current Living Situation Comment: [facility] BELCH[facility] Prisoner Feels Safe at Home: Yes Assistive Devices: Denture - Upper, Denture - Lower and Glasses Assistive Devices Comment: glasses at bedside, dentures are not with pt Review of Systems Review of Systems: Constitutional: No fever/chills, weakness, fatigue, myalgias, anorexia, night sweats Eyes: No diplopia, no worsening or blurred vision ENT: normal hearing, no trouble swallowing Respiratory: No cough, sputum, dyspnea at rest or on exertion Cardiovascular: No chest pain, tightness or palpitations Abdomen: No pain, nausea, vomiting, diarrhea or constipation : Denies dysuria, hematuria, increased urgency/frequency, urinary retention Musculoskeletal: No joint pain, calf pain, swelling Neurologic: No weakness, numbness/tingling, or balance problems Psychiatric: No anxiety or depression Skin: leg leg redness, some swelling; otherwise no rash or itch Physical Exam Physical Exam: General: awake, alert, no apparent distress Head: Normocephalic, atraumatic ENT: PERRL, EOMI, no pharyngeal exudate, mucous membranes moist Chest: Clear to auscultation, on room air, no adventitious breath sounds Cardiac: Regular rate and rhythm, no murmur, no JVD, normal peripheral pulses, good capillary refill Abdominal: NABS x 4 quadrants, soft, nontender to palpation, no rebound, guarding or tenderness Extremities: Normal inspection, no peripheral edema or erythema, calfs nontender to palpation Psych: Normal mood and affect Neuro: AAO x 3, strength intact bilaterally and rated 5/5, no motor deficits, speech is clear, no peripheral sensory deficits Skin: blanching erythema, swelling of the left calf consistent Results & Data Results & Data ([facility]) Vital Signs (Past 12 Hours) Vital Signs Temp Pulse Pulse Resp BP BP Pulse Ox 05/14/22 19:30 19 98 12/13/21 19:06 97 H 20 115/68 95 12/13/21 18:36 20 12/13/21 18:06 100 H 20 143/70 H 95 12/13/21 17:52 38.6 C H 117 H 23 143/70 H 96 Laboratory Results Abnormal lab results 12/13/21 12/13/21 12/13/21 Range/Units 18:12 18:12 18:12 WBC 20.28 H (4.8-10.8) K/uL RBC 4.66 L (4.7-6.1) M/uL Hct 40.5 L (42-52) % Neut # (Auto) 18.34 H (1.4-6.5) K/uL Lymph # (Auto) 0.77 L (1.2-3.4) K/uL Frio # (Auto) 1.06 H (0.11-0.59) K/uL Immature Gran # (Auto) 0.10 H (0.00-0.02) K/uL PT 12.4 H (9.0-12.0) Seconds INR 1.2 H (0.9-1.1) Sodium 132 L (136-145) mmol/L Glucose 196 H (70-99(Fasting)) mg/dl Lactate (0.4-2.0) mmol/L Calcium 8.4 L (8.5-10.1) mg/dl Magnesium 1.2 L (1.7-2.4) mg/dl Procalcitonin (0-0.5) ng/ml 12/13/21 12/13/21 12/13/21 Range/Units 18:12 18:12 20:26 WBC (4.8-10.8) K/uL RBC (4.7-6.1) M/uL Hct (42-52) % Neut # (Auto) (1.4-6.5) K/uL Lymph # (Auto) (1.2-3.4) K/uL Frio # (Auto) (0.11-0.59) K/uL Immature Gran # (Auto) (0.00-0.02) K/uL PT (9.0-12.0) Seconds INR (0.9-1.1) Sodium (136-145) mmol/L Glucose (70-99(Fasting)) mg/dl Lactate 2.9 H* 2.8 H* (0.4-2.0) mmol/L Calcium (8.5-10.1) mg/dl Magnesium (1.7-2.4) mg/dl Procalcitonin 11.41 H (0-0.5) ng/ml Diagnostic Findings Chest X-Ray 12/13/21 18:06 XR chest 1V portable CLINICAL HISTORY: SEPSIS TECHNIQUE: Single frontal radiograph of the chest was obtained. Comparison: Comparison is made to chest radiograph 06/30/2020 FINDINGS: Median sternotomy wires are unchanged. The cardiomediastinal silhouette is normal. The lungs are clear. No evidence of pleural effusion or pneumothorax. IMPRESSION: No acute chest disease. ACT 112: Negative or not required by law. Electronically signed by: Sharif Tena M.D. 12/13/2021 7:15 PM ECG Additional Comments: Sinus tachycardia Cannot rule out Anterior infarct , age undetermined Abnormal ECG When compared with ECG of 30-JUN-2020 10:08, No significant change was found. Code Status & VTE Plan Code Status Full Code. Supervising Physician Co-Signing Physician Notes Attending addendum: I have physically seen this patient, have supervised the BETHANY's activities, and agree with the H&P unless as otherwise noted. Assessment and Plan: Left lower extremity cellulitis/sepsis- Status post 3 L normal saline in ED LR at 80 mils per hour Vancomycin IV and cefepime IV per pharmacokinetic monitoring Follow blood cultures Hypomagnesemia- Magnesium 1.2 plan admission Replete both orally and IV, recheck laboratories in a.m. Diabetes mellitus- Hold metformin Decrease Lantus to 15 units subcu twice daily Placed on Accu-Cheks before meals and at bedtime with NovoLog coverage per scale Check hemoglobin A1c CAD/hypertension/status post CABG- Continue metoprolol tartrate 12.5 mg p.o. twice daily, amlodipine 10 mg daily and lisinopril 10 mg daily Remaining orders and notations as noted PG Care Time/CCT Total # of Minutes Spent Total Time Spent with Patient: Total time spent is greater than 50% in coordination of care (as documented) at patient's floor/unit and/or counseling patient: Coding Level of Care Code 97108 Initial Inpt Care Lvl 3 Diagnoses Cellulitis of left leg L03.116 Sepsis A41.9 Sepsis acute organ dysfunction status: without acute organ dysfunction Sepsis type: sepsis due to unspecified organism Hypomagnesemia E83.42 Coronary artery disease I25.10 GERD (gastroesophageal reflux disease) K21.9 Hypertension I10 Hyperlipidemia E78.5 Diabetes E11.9 (1) Sepsis Sepsis acute organ dysfunction status: without acute organ dysfunction Sepsis type: sepsis due to unspecified organism Qualified Code(s): A41.9 - Sepsis, unspecified organism
[2021-12-13] MEDS: MAGNESIUM SULFATE / D5W 1 GM/100 ML BAG IV SCH ×2 (19:58→20:30)
[2021-12-13] MEDS ORDERED: CARBOHYDRATES FOR HYPOGLYCEMIA PO PRN (22:44)
[2021-12-13] MEDS ORDERED: POLYETHYLENE (MIRALAX) 17 GM PACK PO PRN (22:44)
[2021-12-13] MEDS ORDERED: DEXTROSE 50% 50 ML SYRINGE IV PRN (22:44)
[2021-12-13] MEDS ORDERED: GLUCOSE 10 TABS/TUBE PO PRN (22:44)
[2021-12-13] MEDS ORDERED: ONDANSETRON INJ 2 MG/ML 2 ML VIAL IV PRN (22:44)
[2021-12-13] MEDS ORDERED: METOPROLOL TARTRATE 25 MG TAB PO SCH (22:44)
[2021-12-13] MEDS ORDERED: GLUCOSE 40% GEL 15 GM TUBE PO PRN (22:44)
[2021-12-13] MEDS ORDERED: GLUCAGON FOR INJ 1 MG VIAL SQ PRN (22:44)
[2021-12-14] MEDS: INSULIN ASPART PER UNIT SC SCH ×5 (00:04→20:49)
[2021-12-14] MEDS: ENOXAPARIN INJ 40 MG/0.4 ML SYR SQ SCH ×2 (00:06→20:44)
[2021-12-14] MEDS: MAGNESIUM SULFATE / D5W 1 GM/100 ML BAG IV SCH ×2 (00:07→02:11)
[2021-12-14] MEDS: LACTATED RINGER'S 1,000 ML IV SCH ×3 (00:07→13:00)
[2021-12-14] MEDS: ATORVASTATIN 20 MG TAB PO SCH ×2 (00:08→20:44)
[2021-12-14] MEDS: TRIAMCINOLONE ACET 0.1% CR 15 GM TUBE TOP SCH ×3 (00:08→20:44)
[2021-12-14] MEDS: CALCIUM 600MG + VIT D 400 IU TAB PO SCH ×3 (00:08→20:44)
[2021-12-14] MEDS: INSULIN GLARGINE SOLOSTAR 100 UNITS/ML 3 ML PEN SC SCH ×3 (00:10→20:45)
[2021-12-14 00:50] LABS: Appearance Urine Clear (Clear); Bacteria Urine Automated Negative (Negative); Bilirubin Urine Negative (Negative); Blood Urine Negative (Negative); Cast Urine Automated 0 /lpf (0-5); Color Urine Yellow; Glucose Urine UA 2+ (Negative); Ketones Urine Negative (Negative); Leukocyte Esterase Urine Negative (Negative); Nitrite Urine Negative (Negative); Protein Urine 1+ (Negative); RBC Urine Automated 0-4 /hpf (0-4); Specific Gravity Urine 1.012 (1.000-1.030); Urobilinogen Urine Negative (Negative); pH Urine 6.5 (4.5-7.5)
--- NOTE | 2021-12-14 04:11 | Pharmacy Report ---
Pharmacy Vanc AUC Short Note - Date of Service December 14, 2021 - Assessment & Plan Assessment * Mr Hall is a 61 year old incarcerated M receiving IV vancomycin/cefepime for treatment of L leg cellulitis/sepsis. * Pertinent microbiologic data includes: blood cx pending * Other significant PMH includes DM, CAD s/p CABG. * Pt reports change in color of leg several weeks ago, but this was not reported to [facility] staff until day of admission. * Pt appears septic on arrival. LA 2.9, procal 11.41, febrile, tachycardic Plan Vancomycin * AUC/VANESSA is the preferred PK/PD target for vancomycin * AUC guided dosing is effective and associated with decreased risk of nephroto xicity compared to traditional trough targets * Vancomycin 2gm IV x1 dose, then * Vanc 1250mg IV q12h * This regimen is predicted to achieve target AUC/VANESSA of ~600 mg/L.hr and may be associated with a 17% risk of nephrotoxicity * Trough level ordered prior to the 4th maintenance dose. Cefepime 2gm IV q8h Pharmacy will continue to follow and will adjust dose/frequency as necessary. Thank you.
[2021-12-14] MEDS: CEFEPIME 2,000 MG in SYRINGE 0 ML IV SCH ×3 (05:44→22:17)
[2021-12-14] MEDS: VANCOMYCIN HCL 1,250 MG in SODIUM CHLORIDE 0.9% 250 ML IV SCH ×2 (05:44→16:58)
[2021-12-14 07:25] LABS: Hematocrit (blood only) 38.7 % (42-52); Hemoglobin 13.4 g/dL (14.0-18.0); Mean Corpuscular Hemoglobin 30.2 pg (25-34); Mean Corpuscular Hgb Conc 34.6 g/dL (32-36); Mean Corpuscular Volume 87.4 fL (80-100); Mean Platelet Volume 9.8 fL (7.4-10.4); Platelet Count 216 K/uL (130-400); RDW Coefficient of Variation 12.9 % (11.5-14.5); RDW Standard Deviation 41.6 fL (36.4-46.3); Red Blood Count 4.43 M/uL (4.7-6.1); White Blood Count 22.16 K/uL (4.8-10.8)
[2021-12-14 07:41] LABS: Basophils # (auto) 0.03 K/uL (0-0.2); Basophils % (auto) 0.1 %; Eosinophils # (auto) 0.01 K/uL (0-0.5); Immature Granulocytes # (auto) 0.13 K/uL (0.00-0.02); Immature Granulocytes % (auto) 0.6 %; Lymphocytes # (auto) 0.89 K/uL (1.2-3.4); Monocytes # (auto) 0.87 K/uL (0.11-0.59); Monocytes % (auto) 3.9 %; Neutrophils # (auto) 20.23 K/uL (1.4-6.5); Neutrophils % (auto) 91.4 %
[2021-12-14 07:45] LABS: BUN Creatinine Ratio 17.3 (10-20); Calcium 8.2 mg/dl (8.5-10.1); Creatinine Clr Calc Pharmacy 109.9 ml/min; Est GFR (Non-African American) 96.6 ml/min; Magnesium 1.9 mg/dl (1.7-2.4)
[2021-12-14] MEDS ORDERED: lisinopril 10 MG TAB PO SCH (09:00)
[2021-12-14] MEDS ORDERED: amLODIPine BESYLATE 5 MG TAB PO SCH ×2 (09:00)
[2021-12-14] MEDS: lisinopril 10 MG TAB PO SCH (09:06)
[2021-12-14] MEDS: METOPROLOL TARTRATE 25 MG TAB PO SCH ×2 (09:06→20:44)
[2021-12-14] MEDS: PANTOprazole 40 MG TAB PO SCH (09:06)
--- NOTE | 2021-12-14 10:24 | Electrocardiogram Report ---
Test Reason : Blood Pressure : / mmHG Vent. Rate : 116 BPM Atrial Rate : 116 BPM P-R Int : 188 ms QRS Dur : 100 ms QT Int : 308 ms P-R-T Axes : 036 064 055 degrees QTc Int : 428 ms Poor data quality, interpretation may be adversely affected Sinus tachycardia Otherwise normal ECG When compared with ECG of 30-JUN-2020 10:08, No significant change was found Confirmed by Desmond Mariee ([id number]) on 12/14/2021 10:24:35 AM Referred By: [facility] Confirmed By:Desmond Mariee
--- NOTE | 2021-12-14 14:10 | Hospitalist Progress Note ---
Date of Service December 14, 2021 Assessment & Plan (1) Sepsis: Plan: - Suspected source is his left leg cellulitis - Lactate 2.8 and repeat 1.3 (after hydration). Procal 11.41 - Received 3L NSS in ED. Continued on LRs @ 80 cc/hr. Tolerating oral intake, will cap fluids. - Empirically started on vancomycin and cefepime in ED which has been continued - Blood cultures ordered and are pending (2) Cellulitis of left leg: Plan: - As above. Elevate leg. - Per patient, [facility] performed a venous doppler to assess for DVT and this was negative. Do not have these records, however my suspicion for DVT/PE is low. As to not duplicate this study, will hold off on ordering it for now, can contact [facility] tomorrow AM for copies of results. - Depending upon clinical response, would consider obtaining CT w/ contrast to exclude underlying abscess (3) Hypomagnesemia: Plan: - replaced/resolved (4) Diabetes: Plan: - Hold metformin and insulin mix. - Switch to Lantus 15 units BID - Accu-Cheks ACHS with sliding scale insulin. - Heart healthy/diabetic diet. - A1c ordered and is pending as they are not run over the weekend (5) Coronary artery disease: Plan: - CABG x4 in 2008. - Not on aspirin, has allergy to this, not on antiplatelet therapy. - Continue statin, antihypertensives as BP able to tolerate (6) Hypertension: Plan: - Takes amlodipine 10 mg daily, lisinopril 10 mg daily, metoprolol 12.5 mg twice daily. - Very strange regimen, unsure why Lisinopril would not be uptitrated to achieve BP control rather than to add the Amlodipine - Will stop the Amlodipine and if needed, increase Lisinopril to 20mg daily (7) Hyperlipidemia: Plan: - Continue atorvastatin 20 mg daily. (8) GERD (gastroesophageal reflux disease): Plan: - Continue PPI. Plan: Cap fluids Continue empiric Vanco and Cefepime for minimum 48 hours (will de-escalate to monotherapy tomorrow) Repeat labs and procal in AM Above plan of care d/w Dr. Shahzad St. Admission and Anticipated Discharge Date Admission Date: December 13, 2021 Subjective Patient seen on daily rounds this morning. Pt admitted yesterday from [facility] d/t sepsis felt to be secondary to acute LLE cellulitis. He has been aggressively hydrated and started on empiric antibiotics. This morning, reports that he feels that his leg appears slightly better. Still with mild fever/chills. No cp or dyspnea. Some nausea w/o emesis. No diarrhea. Review of Systems Review of Systems: All systems reviewed and are unremarkable except as noted in HPI and below. Denies fatigue, headache, nasal congestion, sore throat, cough, chest pain, shortness of breath, palpitations, orthopnea, PND, abdominal pain, n/v/d, constipation, dysuria, hematuria, frequency, back pain, joint pain or swelling, easy bruising or bleeding. Physical Exam Physical Exam: GENERAL: 61 yo well-developed, well-nourished male. NAD. LUNGS: Clear to auscultation bilaterally. No W/R/R. CARDIOVASCULAR: Regular rate and rhythm. ABDOMEN: Soft, non-tender and non-distended. BS normoactive x 4 quad. EXTREMITIES: NV intact. Peripheral pulses +2/4 b/l. NEUROLOGIC: A&O x3. PSYCHIATRIC: Cooperative. Appropriate mood and affect. SKIN: Erythematous and edematous LLE extending from ankle to just below knee. Results & Data Results & Data ([facility]) Vital Signs (Past 12 Hours) Vital Signs Temp Pulse Resp BP Pulse Ox 12/14/21 07:18 37.7 C H 93 H 18 116/71 99 12/14/21 05:08 37.6 C H Laboratory Results 12/14/21 07:03 12/14/21 07:03 PG Care Time/CCT Total # of Minutes Spent Total Time Spent with Patient: Total time spent is greater than 50% in coordination of care (as documented) at patient's floor/unit and/or counseling patient: Coding Level of Care Code 96972 Subseq Hosp Care Lvl 3 Diagnoses Sepsis A41.9 Sepsis acute organ dysfunction status: without acute organ dysfunction Sepsis type: sepsis due to unspecified organism Cellulitis of left leg L03.116 Hypomagnesemia E83.42 Diabetes E11.9 Coronary artery disease I25.10 Hypertension I10 Hyperlipidemia E78.5 GERD (gastroesophageal reflux disease) K21.9 (1) Sepsis Sepsis acute organ dysfunction status: without acute organ dysfunction Sepsis type: sepsis due to unspecified organism Qualified Code(s): A41.9 - Sepsis, unspecified organism
[2021-12-14] MEDS: ACETAMINOPHEN 325 MG TAB PO PRN (22:17)
[2021-12-15] MEDS ORDERED: VANCOMYCIN TROUGH ONE ×2 (05:30→17:30)
[2021-12-15] MEDS: CEFEPIME 2,000 MG in SYRINGE 0 ML IV SCH ×3 (06:15→22:49)
[2021-12-15 06:16] LABS: Basophils # (auto) 0.04 K/uL (0-0.2); Basophils % (auto) 0.2 %; Eosinophils # (auto) 0.01 K/uL (0-0.5); Eosinophils % (auto) 0.1 %; Hematocrit (blood only) 40.5 % (42-52); Hemoglobin 14.3 g/dL (14.0-18.0); Immature Granulocytes # (auto) 0.07 K/uL (0.00-0.02); Immature Granulocytes % (auto) 0.4 %; Lymphocytes % (auto) 9.5 %; Mean Corpuscular Hemoglobin 31.1 pg (25-34); Mean Corpuscular Hgb Conc 35.3 g/dL (32-36); Mean Platelet Volume 10.2 fL (7.4-10.4); Monocytes # (auto) 1.59 K/uL (0.11-0.59); Monocytes % (auto) 8.4 %; Neutrophils # (auto) 15.53 K/uL (1.4-6.5); Neutrophils % (auto) 81.4 %; Platelet Count 219 K/uL (130-400); RDW Coefficient of Variation 13.1 % (11.5-14.5); RDW Standard Deviation 42.1 fL (36.4-46.3); White Blood Count 19.04 K/uL (4.8-10.8)
[2021-12-15] MEDS: VANCOMYCIN HCL 1,250 MG in SODIUM CHLORIDE 0.9% 250 ML IV SCH (06:16)
[2021-12-15 06:42] LABS: BUN Creatinine Ratio 14.6 (10-20); Calcium 8.6 mg/dl (8.5-10.1); Creatinine Clr Calc Pharmacy 92.7 ml/min; Est GFR (African American) 99.2 ml/min; Est GFR (Non-African American) 85.6 ml/min; Potassium 4.2 mmol/L (3.5-5.1)
[2021-12-15 07:30] LABS: Estimated Average Glucose 197 mg/dl; Hemoglobin A1C 8.5 % (4.5-5.6)
[2021-12-15] MEDS: METOPROLOL TARTRATE 25 MG TAB PO SCH ×2 (08:54→20:34)
[2021-12-15] MEDS: CALCIUM 600MG + VIT D 400 IU TAB PO SCH ×2 (08:55→20:35)
[2021-12-15] MEDS: PANTOprazole 40 MG TAB PO SCH (08:55)
[2021-12-15] MEDS: lisinopril 10 MG TAB PO SCH (08:55)
[2021-12-15] MEDS: INSULIN GLARGINE SOLOSTAR 100 UNITS/ML 3 ML PEN SC SCH ×2 (08:56→20:39)
[2021-12-15] MEDS: TRIAMCINOLONE ACET 0.1% CR 15 GM TUBE TOP SCH ×2 (08:58→20:37)
[2021-12-15] MEDS: INSULIN ASPART PER UNIT SC SCH ×4 (09:06→20:41)
--- NOTE | 2021-12-15 10:58 | Hospitalist Progress Note ---
Date of Service December 15, 2021 Assessment & Plan (1) Sepsis: Plan: RESOLVED - Sepsis secondary to LLE cellulitis: met criteria d/t leukocytosis, tachycardia, fever and elevated lactate - Lactate 2.8 and repeat 1.3 (after hydration). Procal 11.41 - Received 3L NSS in ED. Continued on LRs @ 80 cc/hr. Tolerating oral intake, fluids capped 5/15 - Empirically started on vancomycin and cefepime in ED which was continued - Blood cultures NGTD (2) Cellulitis of left leg: Plan: - Received over 48 hrs of Cefepime and Vancomycin - Vancomycin trough is subtherapeutic at 7.1, with that pt is clinically imp roving, thus will d/c Vanco - Per patient, the staff at [facility] performed a venous doppler which was neg for DVT. Do not have these records, will request that [facility] sends for documentation - Clinically improving, hold off on leg imaging at this time (3) Hypomagnesemia: Plan: - replaced/resolved (4) Diabetes: Plan: - Hold metformin and insulin mix. - Switch to Lantus 15 units BID - Accu-Cheks ACHS with sliding scale insulin. - Heart healthy/diabetic diet. - A1c 8.5% (5) Coronary artery disease: Plan: - CABG x4 in 2008. - Not on aspirin, has allergy to this, not on antiplatelet therapy. - Continue statin, antihypertensives as BP able to tolerate (6) Hypertension: Plan: - Takes amlodipine 10 mg daily, lisinopril 10 mg daily, metoprolol 12.5 mg twice daily. - Very strange regimen, unsure why Lisinopril would not be uptitrated to achieve BP control rather than to add the Amlodipine - Will stop the Amlodipine and, if needed, can increase Lisinopril (7) Hyperlipidemia: Plan: - Continue atorvastatin 20 mg daily. (8) GERD (gastroesophageal reflux disease): Plan: - Continue PPI. Plan: Clinically improving, de-escalate abx as discussed Follow up labs in AM Anticipate will be ready for d/c in next 24-48 hrs Above plan of care d/w Dr. Shahzad St. Admission and Anticipated Discharge Date Admission Date: December 13, 2021 Subjective Patient seen on daily rounds this morning. He feels that his leg appears better, denies fever, chills, n/v/d, headache, or gu symptoms. Denies cp or dyspnea. Did have documented fever overnight, tmax was 38.6C @ 2200 Review of Systems Review of Systems: All systems reviewed and are unremarkable except as noted in HPI and below. Denies fever, chills, fatigue, headache, nasal congestion, sore throat, cough, chest pain, shortness of breath, palpitations, orthopnea, PND, abdominal pain, n/v/d, constipation, dysuria, hematuria, frequency, back pain, joint pain or swelling, easy bruising or bleeding. Physical Exam Physical Exam: GENERAL: 61 yo well-developed, well-nourished M. NAD. LUNGS: Clear to auscultation bilaterally. No W/R/R. CARDIOVASCULAR: Regular rate and rhythm. ABDOMEN: Soft, non-tender and non-distended. BS normoactive x 4 quad. EXTREMITIES: Erythema and edema of LLE extending from just below knee to above ankle. Non-tender. Peripheral pulses +2/4. NEUROLOGIC: A&O x3. PSYCHIATRIC: Cooperative. Appropriate mood and affect. SKIN: Warm, dry, intact. Results & Data Results & Data ([facility]) Vital Signs (Past 12 Hours) Vital Signs Temp Pulse Resp BP Pulse Ox 12/15/21 07:36 37.4 C 86 16 100/67 98 12/15/21 04:11 37.6 C H 12/15/21 00:56 38.3 C H 12/14/21 23:36 38.5 C H Laboratory Results 12/15/21 06:02 12/15/21 06:02 PG Care Time/CCT Total # of Minutes Spent Total Time Spent with Patient: Total time spent is greater than 50% in coordination of care (as documented) at patient's floor/unit and/or counseling patient: Coding Level of Care Code 48282 Subseq Hosp Care Lvl 2 Diagnoses Sepsis A41.9 Sepsis acute organ dysfunction status: without acute organ dysfunction Sepsis type: sepsis due to unspecified organism Cellulitis of left leg L03.116 Hypomagnesemia E83.42 Diabetes E11.9 Coronary artery disease I25.10 Hypertension I10 Hyperlipidemia E78.5 GERD (gastroesophageal reflux disease) K21.9 (1) Sepsis Sepsis acute organ dysfunction status: without acute organ dysfunction Sepsis type: sepsis due to unspecified organism Qualified Code(s): A41.9 - Sepsis, unspecified organism
[2021-12-15] MEDS ORDERED: VANCOMYCIN HCL 1,500 MG in SODIUM CHLORIDE 0.9% 500 ML IV SCH (16:00)
[2021-12-15] MEDS: ATORVASTATIN 20 MG TAB PO SCH (20:36)
[2021-12-15] MEDS: ENOXAPARIN INJ 40 MG/0.4 ML SYR SQ SCH (20:37)
[2021-12-16] MEDS: CEFEPIME 2,000 MG in SYRINGE 0 ML IV SCH ×2 (06:18→13:00)
[2021-12-16 08:24] LABS: Creatinine Clr Calc Pharmacy 93.7 ml/min; Est GFR (African American) 100.4 ml/min; Est GFR (Non-African American) 86.7 ml/min
[2021-12-16] MEDS: INSULIN ASPART PER UNIT SC SCH ×4 (09:18→20:35)
[2021-12-16] MEDS: INSULIN GLARGINE SOLOSTAR 100 UNITS/ML 3 ML PEN SC SCH ×2 (09:23→20:34)
[2021-12-16] MEDS: CALCIUM 600MG + VIT D 400 IU TAB PO SCH ×2 (09:24→20:30)
[2021-12-16] MEDS: PANTOprazole 40 MG TAB PO SCH (09:24)
[2021-12-16] MEDS: lisinopril 10 MG TAB PO SCH (09:24)
[2021-12-16] MEDS: METOPROLOL TARTRATE 25 MG TAB PO SCH ×2 (09:25→20:30)
[2021-12-16] MEDS: TRIAMCINOLONE ACET 0.1% CR 15 GM TUBE TOP SCH ×2 (09:25→20:41)
[2021-12-16 09:50] LABS: Basophils # (auto) 0.02 K/uL (0-0.2); Basophils % (auto) 0.2 %; Eosinophils # (auto) 0.13 K/uL (0-0.5); Eosinophils % (auto) 1.1 %; Hematocrit (blood only) 40.1 % (42-52); Hemoglobin 13.8 g/dL (14.0-18.0); Immature Granulocytes # (auto) 0.05 K/uL (0.00-0.02); Immature Granulocytes % (auto) 0.4 %; Lymphocytes # (auto) 1.73 K/uL (1.2-3.4); Lymphocytes % (auto) 14.8 %; Mean Corpuscular Hemoglobin 29.3 pg (25-34); Mean Corpuscular Volume 85.1 fL (80-100); Mean Platelet Volume 10.3 fL (7.4-10.4); Monocytes # (auto) 1.24 K/uL (0.11-0.59); Monocytes % (auto) 10.6 %; Neutrophils # (auto) 8.53 K/uL (1.4-6.5); Neutrophils % (auto) 72.9 %; Platelet Count 247 K/uL (130-400); RDW Coefficient of Variation 12.9 % (11.5-14.5); RDW Standard Deviation 40.5 fL (36.4-46.3); Red Blood Count 4.71 M/uL (4.7-6.1)
[2021-12-16 09:57] LABS: Mean Corpuscular Hgb Conc 34.4 g/dL (32-36)
[2021-12-16 10:09] LABS: BUN Creatinine Ratio 18.6 (10-20); Calcium 8.4 mg/dl (8.5-10.1); Creatinine Clr Calc Pharmacy 91.8 ml/min; Est GFR (African American) 97.9 ml/min; Est GFR (Non-African American) 84.5 ml/min; Potassium 3.6 mmol/L (3.5-5.1)
--- NOTE | 2021-12-16 14:50 | Hospitalist Progress Note ---
Date of Service December 16, 2021 Assessment & Plan (1) Sepsis: Plan: RESOLVED - Sepsis secondary to LLE cellulitis: met criteria d/t leukocytosis, tachycardia, fever and elevated lactate - Lactate 2.8 and repeat 1.3 (after hydration). Procal 11.41 - Received 3L NSS in ED. Continued on LRs @ 80 cc/hr. Tolerating oral intake, fluids capped 12/14 - Empirically started on vancomycin and cefepime in ED which was continued - Blood cultures NGTD (2) Cellulitis of left leg: Plan: - Received over 48 hrs of Cefepime and Vancomycin - Vancomycin trough is subtherapeutic at 7.1, with that pt is clinical impro vement noted, thus will Vanco stopped - Per patient, the staff at [facility] performed a venous doppler which was neg for DVT. Do not have these records, will request that [facility] sends for documentation - Although clinical improvement noted, patient continues to manifest low-grade temps - Obtain CT LLE w/ contrast to r/o underlying abscess - Will stop Cefepime and change to oral Keflex 500mg BID, first dose to start tonight - Continue to monitor additional 24 hours to ensure that pt is not spiking any more fevers and continues to demonstrate resolution (3) Hypomagnesemia: Plan: - replaced/resolved (4) Diabetes: Plan: - Hold metformin and insulin mix. - Switch to Lantus 15 units BID - Accu-Cheks ACHS with sliding scale insulin. - Heart healthy/diabetic diet. - A1c 8.5% (5) Coronary artery disease: Plan: - CABG x4 in 2008. - Not on aspirin, has allergy to this, not on antiplatelet therapy. - Continue statin, antihypertensives as BP able to tolerate (6) Hypertension: Plan: - Takes amlodipine 10 mg daily, lisinopril 10 mg daily, metoprolol 12.5 mg twice daily. - Very strange regimen, unsure why Lisinopril would not be uptitrated to achieve BP control rather than to add the Amlodipine - Will stop the Amlodipine and, if needed, can increase Lisinopril (7) Hyperlipidemia: Plan: - Continue atorvastatin 20 mg daily. (8) GERD (gastroesophageal reflux disease): Plan: - Continue PPI. Plan: Clinically improving, antibiotic management as outlined above Follow up labs in AM Anticipate will be ready for d/c in next 24 hrs Above plan of care d/w Dr. Shahzad St. Admission and Anticipated Discharge Date Admission Date: December 13, 2021 Subjective Patient seen on daily rounds this morning. He feels that his leg appears better, denies fever, chills, n/v/d, headache, or gu symptoms. Denies cp or dyspnea. Temps last 24 hours include a tmax of 37.6C. Review of Systems Review of Systems: All systems reviewed and are unremarkable except as noted in HPI and below. Denies fever, chills, fatigue, headache, nasal congestion, sore throat, cough, chest pain, shortness of breath, palpitations, orthopnea, PND, abdominal pain, n/v/d, constipation, dysuria, hematuria, frequency, back pain, joint pain or swelling, easy bruising or bleeding. Physical Exam Physical Exam: GENERAL: 61 yo well-developed, well-nourished M. NAD. LUNGS: Clear to auscultation bilaterally. No W/R/R. CARDIOVASCULAR: Regular rate and rhythm. ABDOMEN: Soft, non-tender and non-distended. BS normoactive x 4 quad. EXTREMITIES: Erythema and edema of LLE extending from just below knee to above ankle. Non-tender. Peripheral pulses +2/4. NEUROLOGIC: A&O x3. PSYCHIATRIC: Cooperative. Appropriate mood and affect. SKIN: Warm, dry, intact. Results & Data Results & Data ([facility]) Vital Signs (Past 12 Hours) Vital Signs Temp Pulse Resp BP Pulse Ox 12/16/21 08:13 37.6 C H 78 18 128/85 95 Laboratory Results 12/16/21 09:34 12/16/21 09:34 PG Care Time/CCT Total # of Minutes Spent Total Time Spent with Patient: Total time spent is greater than 50% in coordination of care (as documented) at patient's floor/unit and/or counseling patient: Coding Level of Care Code 87111 Subseq Hosp Care Lvl 2 Diagnoses Sepsis A41.9 Sepsis acute organ dysfunction status: without acute organ dysfunction Sepsis type: sepsis due to unspecified organism Cellulitis of left leg L03.116 Hypomagnesemia E83.42 Diabetes E11.9 Coronary artery disease I25.10 Hypertension I10 Hyperlipidemia E78.5 GERD (gastroesophageal reflux disease) K21.9 (1) Sepsis Sepsis acute organ dysfunction status: without acute organ dysfunction Sepsis type: sepsis due to unspecified organism Qualified Code(s): A41.9 - Sepsis, unspecified organism
[2021-12-16] MEDS ORDERED: OPTIRAY 320 100ml IV ONE (16:09)
--- NOTE | 2021-12-16 16:34 | CT Scan Report ---
CT tib/fib LT w con HISTORY: 61 years-old Male LLE cellulitis, r/o abscess acute pain and swelling of the left lower leg COMPARISON: None TECHNIQUE: Multiple axial CT images of the left tibia and fibula were obtained utilizing 94 mm Optira y 320. A dose lowering technique was used consistent with the principals of YONY. Coronal and sagitt al reformatted images were obtained from the axial data set and were submitted for review. FINDINGS: Tendons and ligaments are not well evaluated by CT technique. Soft tissue thickening with irregularit y of the tibialis posterior. Questioned associated tenosynovitis. Arterial calcifications are noted. Mild to moderate subcutaneous edema with skin thickening of the lower leg and ankle. No drainable flu id collections identified. No intramuscular collections are seen. The study is not tailored to assess the intrinsic structures of the knee. Moderate to marked fatty atrophy involves the mid to distal me dial head of the gastrocnemius. No acute fracture, dislocation or osseous erosion. There are no suspicious bone lesions identified. N o osteochondral defect of the talar dome. Mild osteoarthritis of the knee and ankle with degenerative spurring of the calcaneus. IMPRESSION: 1. No acute osseous abnormality. 2. Mild to moderate subcutaneous edema with skin thickening suggestive of cellulitis. No abscess. 3. Probable split tear of the tibialis posterior tendon, suboptimally evaluated by CT technique. 4. Fatty atrophy of the medial head gastrocnemius muscle. ACT 112: Negative or not required by law. The above report was generated using voice recognition software. It may contain grammatical, syntax o r spelling errors. Electronically signed by: Jose R Morales M.D. 12/16/2021 4:32 PM
[2021-12-16] MEDS: ATORVASTATIN 20 MG TAB PO SCH (20:29)
[2021-12-16] MEDS: cephALEXin 500 MG CAP PO SCH (20:30)
[2021-12-16] MEDS: ENOXAPARIN INJ 40 MG/0.4 ML SYR SQ SCH (20:36)
[2021-12-17 07:35] LABS: Basophils # (auto) 0.05 K/uL (0-0.2); Basophils % (auto) 0.5 %; Eosinophils # (auto) 0.27 K/uL (0-0.5); Eosinophils % (auto) 2.7 %; Hematocrit (blood only) 39.7 % (42-52); Hemoglobin 13.8 g/dL (14.0-18.0); Immature Granulocytes # (auto) 0.12 K/uL (0.00-0.02); Immature Granulocytes % (auto) 1.2 %; Lymphocytes # (auto) 1.82 K/uL (1.2-3.4); Lymphocytes % (auto) 18.2 %; Mean Corpuscular Hemoglobin 30.1 pg (25-34); Mean Corpuscular Hgb Conc 34.8 g/dL (32-36); Mean Corpuscular Volume 86.5 fL (80-100); Mean Platelet Volume 10.4 fL (7.4-10.4); Monocytes # (auto) 1.36 K/uL (0.11-0.59); Monocytes % (auto) 13.6 %; Neutrophils # (auto) 6.36 K/uL (1.4-6.5); Neutrophils % (auto) 63.8 %; Platelet Count 285 K/uL (130-400); RDW Coefficient of Variation 12.8 % (11.5-14.5); RDW Standard Deviation 40.8 fL (36.4-46.3); Red Blood Count 4.59 M/uL (4.7-6.1); White Blood Count 9.98 K/uL (4.8-10.8)
[2021-12-17 08:02] LABS: BUN Creatinine Ratio 18.7 (10-20); Calcium 8.6 mg/dl (8.5-10.1); Creatinine Clr Calc Pharmacy 97.8 ml/min; Est GFR (African American) 105.8 ml/min; Est GFR (Non-African American) 91.3 ml/min; Potassium 3.9 mmol/L (3.5-5.1)
[2021-12-17] MEDS: INSULIN GLARGINE SOLOSTAR 100 UNITS/ML 3 ML PEN SC SCH ×2 (09:27→21:12)
[2021-12-17] MEDS: INSULIN ASPART PER UNIT SC SCH ×4 (09:28→21:13)
[2021-12-17] MEDS: METOPROLOL TARTRATE 25 MG TAB PO SCH ×2 (09:33→21:03)
[2021-12-17] MEDS: lisinopril 10 MG TAB PO SCH (09:33)
[2021-12-17] MEDS: CALCIUM 600MG + VIT D 400 IU TAB PO SCH ×2 (09:33→21:02)
[2021-12-17] MEDS: cephALEXin 500 MG CAP PO SCH ×2 (09:33→21:02)
[2021-12-17] MEDS: PANTOprazole 40 MG TAB PO SCH (09:33)
[2021-12-17] MEDS: TRIAMCINOLONE ACET 0.1% CR 15 GM TUBE TOP SCH ×2 (09:34→21:01)
--- NOTE | 2021-12-17 11:52 | Hospitalist Progress Note ---
Date of Service December 17, 2021 Assessment & Plan (1) Sepsis: Plan: RESOLVED - Sepsis secondary to LLE cellulitis: met criteria d/t leukocytosis, tachycardia, fever and elevated lactate - Lactate 2.8 and repeat 1.3 (after hydration). Procal 11.41 - Received 3L NSS in ED. Continued on LRs @ 80 cc/hr. Tolerating oral intake, fluids capped 12/14 - Empirically started on vancomycin and cefepime in ED which was continued - Blood cultures NGTD (2) Cellulitis of left leg: Plan: - Received over 48 hrs of Cefepime and Vancomycin - Vancomycin trough is subtherapeutic at 7.1, with that pt is clinical impro vement noted, thus Vanco stopped - Per patient, the staff at [facility] performed a venous doppler which was neg for DVT. Do not have these records, will request that [facility] sends for documentation - Although clinical improvement noted, patient continues to manifest low-grade temps - CT LLE w/ contrast to r/o underlying abscess (results above) -- no evidence of abscess - Cefepime transitioned to Keflex 500mg po BID, first dose started 517 PM - No further fevers noted; however, leg appears clinically worse with additional areas of erythema outside of outlined area - Will add back MRSA coverage with Bactrim DS, first dose now - Monitor additional 24 hrs --> if improvement noted tomorrow, can d/c back to [facility] with Bactrim and Keflex (3) Hypomagnesemia: Plan: - replaced/resolved (4) Diabetes: Plan: - Hold metformin and insulin mix. - Switch to Lantus 15 units BID - Accu-Cheks ACHS with sliding scale insulin. - Heart healthy/diabetic diet. - A1c 8.5% (5) Coronary artery disease: Plan: - CABG x4 in 2008. - Not on aspirin, has allergy to this, not on antiplatelet therapy. - Continue statin, antihypertensives as BP able to tolerate (6) Hypertension: Plan: - Takes amlodipine 10 mg daily, lisinopril 10 mg daily, metoprolol 12.5 mg twice daily. - Very strange regimen, unsure why Lisinopril would not be uptitrated to achieve BP control rather than to add the Amlodipine - Will stop the Amlodipine and, if needed, can increase Lisinopril (7) Hyperlipidemia: Plan: - Continue atorvastatin 20 mg daily. (8) GERD (gastroesophageal reflux disease): Plan: - Continue PPI. Plan: Clinically improving, antibiotic management as outlined above Follow up labs in AM Anticipate will be ready for d/c in next 24 hrs Above plan of care d/w Dr. Shahzad St. Admission and Anticipated Discharge Date Admission Date: December 13, 2021 Subjective Patient seen on daily rounds this morning. He feels that his leg is about the same, denies fever, chills, n/v/d, headache, or gu symptoms. Denies cp or dyspnea. No documented fevers overnight. Review of Systems Review of Systems: All systems reviewed and are unremarkable except as noted in HPI and below. Denies fever, chills, fatigue, headache, nasal congestion, sore throat, cough, chest pain, shortness of breath, palpitations, orthopnea, PND, abdominal pain, n/v/d, constipation, dysuria, hematuria, frequency, back pain, joint pain or swelling, easy bruising or bleeding. Physical Exam Physical Exam: GENERAL: 61 yo well-developed, well-nourished M. NAD. LUNGS: Clear to auscultation bilaterally. No W/R/R. CARDIOVASCULAR: Regular rate and rhythm. ABDOMEN: Soft, non-tender and non-distended. BS normoactive x 4 quad. EXTREMITIES: Erythema and edema of LLE extending from just below knee to above ankle. Spot of erythema on dorsum of foot as well as medial ankle and on left aspect of the knee (outside of previously outlined area). Non-tender. Peripheral pulses +2/4. NEUROLOGIC: A&O x3. PSYCHIATRIC: Cooperative. Appropriate mood and affect. SKIN: Warm, dry, intact. see ext exam Results & Data Results & Data ([facility]) Vital Signs (Past 12 Hours) Vital Signs Temp Pulse Resp BP Pulse Ox 12/17/21 07:18 37.2 C 69 18 129/72 95 12/16/21 23:53 36.8 C 71 16 116/71 96 Laboratory Results 12/17/21 06:56 12/17/21 06:56 Diagnostic Findings Lower Extremity CT 12/16/21 14:47 CT tib/fib LT w con HISTORY: 61 years-old Male LLE cellulitis, r/o abscess acute pain and swelling of the left lower leg COMPARISON: None TECHNIQUE: Multiple axial CT images of the left tibia and fibula were obtained utilizing 94 mm Optiray 320. A dose lowering technique was used consistent with the principals of YONY. Coronal and sagittal reformatted images were obtained from the axial data set and were submitted for review. FINDINGS: Tendons and ligaments are not well evaluated by CT technique. Soft tissue thickening with irregularity of the tibialis posterior. Questioned associated tenosynovitis. Arterial calcifications are noted. Mild to moderate subcutaneous edema with skin thickening of the lower leg and ankle. No drainable fluid collections identified. No intramuscular collections are seen. The study is not tailored to assess the intrinsic structures of the knee. Moderate to marked fatty atrophy involves the mid to distal medial head of the gastrocnemius. No acute fracture, dislocation or osseous erosion. There are no suspicious bone lesions identified. No osteochondral defect of the talar dome. Mild o steoarthritis of the knee and ankle with degenerative spurring of the calcaneus. IMPRESSION: 1. No acute osseous abnormality. 2. Mild to moderate subcutaneous edema with skin thickening suggestive of cellulitis. No abscess. 3. Probable split tear of the tibialis posterior tendon, suboptimally evaluated by CT technique. 4. Fatty atrophy of the medial head gastrocnemius muscle. ACT 112: Negative or not required by law. The above report was generated using voice recognition software. It may contain grammatical, syntax or spelling errors. Electronically signed by: Jose R Morales M.D. 12/16/2021 4:32 PM PG Care Time/CCT Total # of Minutes Spent Total Time Spent with Patient: Total time spent is greater than 50% in coordination of care (as documented) at patient's floor/unit and/or counseling patient: Coding Level of Care Code 11276 Subseq Hosp Care Lvl 2 Diagnoses Sepsis A41.9 Sepsis acute organ dysfunction status: without acute organ dysfunction Sepsis type: sepsis due to unspecified organism Cellulitis of left leg L03.116 Hypomagnesemia E83.42 Diabetes E11.9 Coronary artery disease I25.10 Hypertension I10 Hyperlipidemia E78.5 GERD (gastroesophageal reflux disease) K21.9 (1) Sepsis Sepsis acute organ dysfunction status: without acute organ dysfunction Sepsis type: sepsis due to unspecified organism Qualified Code(s): A41.9 - Sepsis, unspecified organism
[2021-12-17] MEDS: SULFAMETHOXAZOLE/TRIMETHOPRIM DS 800/160MG TAB PO SCH ×2 (13:02→22:17)
[2021-12-17] MEDS: ATORVASTATIN 20 MG TAB PO SCH (21:02)
[2021-12-17] MEDS: ENOXAPARIN INJ 40 MG/0.4 ML SYR SQ SCH (21:02)
[2021-12-18] MEDS: METOPROLOL TARTRATE 25 MG TAB PO SCH (08:03)
[2021-12-18] MEDS: lisinopril 10 MG TAB PO SCH (08:03)
[2021-12-18] MEDS: CALCIUM 600MG + VIT D 400 IU TAB PO SCH (08:03)
[2021-12-18] MEDS: cephALEXin 500 MG CAP PO SCH (08:04)
[2021-12-18] MEDS: PANTOprazole 40 MG TAB PO SCH (08:04)
[2021-12-18] MEDS: SULFAMETHOXAZOLE/TRIMETHOPRIM DS 800/160MG TAB PO SCH (08:04)
[2021-12-18] MEDS: TRIAMCINOLONE ACET 0.1% CR 15 GM TUBE TOP SCH (08:04)
[2021-12-18] MEDS: ACETAMINOPHEN 325 MG TAB PO PRN (08:09)
[2021-12-18 08:27] LABS: Basophils # (auto) 0.04 K/uL (0-0.2); Basophils % (auto) 0.4 %; Eosinophils # (auto) 0.19 K/uL (0-0.5); Eosinophils % (auto) 2.1 %; Hematocrit (blood only) 39.8 % (42-52); Hemoglobin 14.4 g/dL (14.0-18.0); Immature Granulocytes # (auto) 0.26 K/uL (0.00-0.02); Immature Granulocytes % (auto) 2.8 %; Lymphocytes # (auto) 2.06 K/uL (1.2-3.4); Lymphocytes % (auto) 22.5 %; Mean Corpuscular Hemoglobin 30.9 pg (25-34); Mean Corpuscular Hgb Conc 36.2 g/dL (32-36); Mean Corpuscular Volume 85.4 fL (80-100); Mean Platelet Volume 10.4 fL (7.4-10.4); Monocytes # (auto) 1.09 K/uL (0.11-0.59); Monocytes % (auto) 11.9 %; Neutrophils # (auto) 5.52 K/uL (1.4-6.5); Neutrophils % (auto) 60.3 %; Platelet Count 302 K/uL (130-400); RDW Coefficient of Variation 12.7 % (11.5-14.5); RDW Standard Deviation 39.8 fL (36.4-46.3); Red Blood Count 4.66 M/uL (4.7-6.1); White Blood Count 9.16 K/uL (4.8-10.8)
[2021-12-18 08:38] LABS: BUN Creatinine Ratio 18.5 (10-20); Calcium 8.7 mg/dl (8.5-10.1); Creatinine Clr Calc Pharmacy 96.7 ml/min; Est GFR (African American) 104.4 ml/min; Est GFR (Non-African American) 90.1 ml/min
[2021-12-18] MEDS: INSULIN GLARGINE SOLOSTAR 100 UNITS/ML 3 ML PEN SC SCH (08:48)
[2021-12-18] MEDS: INSULIN ASPART PER UNIT SC SCH ×2 (08:49→12:53)
--- NOTE | 2021-12-18 12:43 | Discharge Summary ---
Date of Service December 18, 2021 Admission HPI Per Admitting Provider Mr. Barron is a 61-year-old male with past medical history of CAD s/p CABG in 2008, hypertension, hyperlipidemia, diabetes, and GERD who presents today for worsening left leg infection. He noticed his leg was turning red-purple several weeks ago, however did not mention it to staff at the [facility] until today. He is unsure how it happened, no inciting injury or open wound. He has had some pain at the site, but able to feel his toes, no numbness/tingling or immobility. He has not noticed fever/chills, SOB, chest pain, palpitations. He has been able to ambulate on it without pain. In ED, he presents tachycardic with heart rate 117, temperature of 101.4, otherwise vital signs within normal limits and stable. Labs significant for WBC 20.28, lactate 2.9, procalcitonin 11.41. Sodium 132, glucose 196, magnesium 1.2. CXR without acute findings. Principal Diagnosis 1. Sepsis Syndrome- secondary to cellulitis 2. Cellulitis of the left leg Discharge Exam General: Resting comfortably in his hospital bed. Does not appear ill or toxic NAD. HEENT: Head is AT/NC. Buccal mucosa is moist and pink Neck: No JVD. Negative hepatojugular reflex Cardiac: RRR 1/6 KAN Lungs: CTA without W/R/R Abdomen: Normoactive X4. Soft and nontender in all quadrants. Extremities: Vascular changes noted to the left lower extremity (dusky rubor, mild edema, stasis dermatitis). There was superimposed erythema and warmth that has since resolved. No clinical evidence of cellulitis on today's exam. Peripheral pulses intact and symmetrical bilaterally. Negative Homans' sign. No calf tenderness. No open wounds. Neuro: A&O X4. Cranial nerves II through XII are grossly intact. No focal neuro deficits Skin: See above Psych: Appropriate affect. Pleasant and cooperative Discharge Data Allergies Allergy/AdvReac Type Severity Reaction Status Date / Time aspirin Allergy Intermediate Hives Verified 12/13/21 17:56 Consultations 12/13/21 19:17 ED Decision to Admit Stat Ordered Studies 12/16/21 14:47 CT tib/fib LT w con Urgent IMPRESSION: 1. No acute osseous abnormality. 2. Mild to moderate subcutaneous edema with skin thickening suggestive of cellulitis. No abscess. 3. Probable split tear of the tibialis posterior tendon, suboptimally evaluated by CT technique. 4. Fatty atrophy of the medial head gastrocnemius muscle. Hospital Course (1) Sepsis: RESOLVED - Sepsis secondary to LLE cellulitis: met criteria d/t leukocytosis (20K), tachycardia (117), fever (101.4) and elevated lactate (2.9) along with elevated procal of 11.41 - resolved with Aggressive IV hydration and abx therapy - Blood cultures NGTD (2) Cellulitis of left leg: - Received Cefepime and Vancomycin empirically - Patient with favorable response (defervesced, WBC normalized, improvement in cellulitis) for which his IV antibiotics were de-escalated to single agent cefepime - Per patient, the staff at [facility] performed a venous doppler which was neg for DVT. Do not have these records, results requested but still not available (however, with sepsis syndrome and improvement with abx-- DVT unlikely) - CT LLE w/ showed no evidence of abscess -- no evidence of abscess - Cefepime transitioned to Keflex 500mg po BID and Vanco stopped - with de-escalation in abx therapy, clinically the cellulitis appeared worse with additional areas of erythema outside of outlined area - Added back MRSA coverage with Bactrim DS - seen on daily round today with significant clinical improvement as the area of erythema receding from the area of demarcation. Skin is not warm or tender to touch. Clinically stable for D/C back to the [facility] today. Courtesy phone call made to [facility] to notify them of patient's return and ensure that they had the abx therapy needed. I was assurred that they do and can accept patient today (3) Hypomagnesemia: - replaced/resolved (4) Diabetes: - Held metformin while in house given contrast dye given for CT scan (to prevent contrast nephropathy in setting of metformin) - Utilized Lantus/log with sliding scale and correction dosing - A1c 8.5% - Resume prehospital medications (5) Coronary artery disease: - CABG x4 in 2008. - Not on aspirin, has allergy to this, not on antiplatelet therapy. - Continue statin, antihypertensives as BP able to tolerate (6) Hypertension: - Takes amlodipine 10 mg daily, lisinopril 10 mg daily, metoprolol 12.5 mg twice daily. - Very strange regimen, unsure why Lisinopril would not be uptitrated to achieve BP control rather than to add the Amlodipine (as this can also contribute to edema and patient has obvious vascular insufficiency) - Norvasc stopped during this hospitalization. BP currently 126/72. Would advise discontinuation of Norvasc completely and if addition BP control needed, can increase lisinopril to 20mg-- at discretion of House Provider (7) Hyperlipidemia: - Continue atorvastatin 20 mg daily. (8) GERD (gastroesophageal reflux disease): - Continue PPI. (9) Vascular insufficiency of extremity: - Vascular insufficiency noted to left leg (likely related to vein harvesting for CABG) and given this, does pose increased risk for recurrent cellulitis - Once cellulitis completely resolved and off antibiotics, would recommend compression stockingto left legat discretion of house provider - Continue to utilize triamcinolone cream [facility] at [facility] notified of patient's discharge and return to their facility Complete full course of antibiotics Follow-up with house physician within 24 to 48 hours Return to the ED for any new or worsening symptoms Total Time Total Time Spent Total Time Spent (In Minutes): 45 min including time spent with patient, calling provider at [facility], D/W Attending provider and preparation of documentation Discharge Plan Discharge Items [facility]position[facility] Reason For Visit: SEPSIS DUE TO LEFT LEG CELLULITIS Discharge Diagnosis: 1. Sepsis Syndrome- secondary to cellulitis 2. Cellulitis of the left leg Activity: Resume your previous activity Activity Comment: elevate right leg when able Non-emergency contact: Primary Care Provider Call non-emergency contact if: you have any medication questions and you have a fever Follow-up/Referrals: Simi PLUMMER [Primary Care Provider] - Diet: Carb Consistent or DM2 Addtl Attending Provider Instructions: Patient was hospitalized secondary to cellulitis of his left lower extremity and sepsis syndrome (tachycardic, fever, leukocytosis) Patient has responded favorably to IV antibiotics. He has since been transitioned to Keflex/Bactrim with continued improvement. Continue full course of these medications (Keflex to conclude on 12/23, Bactrim to conclude on 12/24)--next dose of both of these medications are due tonight He does have underlying stasis dermatitis/vascular insufficiency. Can continue to utilize triamcinolone cream twice daily to the right leg. Should keep leg elevated as often as possible. Once he completes antibiotics, can consider compression stockingsat discretion of house provider Follow-up with house provider: 24 to 48 hours Return to the ED for any new or worsening symptoms Pending Studies at Discharge: No Stand-Alone Forms: My [facility] Skilled Items Patient informed of condition?: No Discharge Level of Care: Other Communicable Disease: No Discharge Prognosis: Improving Lines: None Urinary Catheter: No Medications and DC Order Prescriptions: New sulfamethoxazole-trimethoprim [Bactrim DS] 800-160 mg Tablet 1 tab PO Q12 Qty: 13 RF: 0 cephalexin 500 mg Capsule 500 mg PO BID Qty: 11 RF: 0 Continued atorvastatin 20 mg Tablet 20 mg PO HS RF: 0 glucose 4 gram Tablet,Chewable 4 g PO BID RF: 0 Novolin 70-30 FlexPen U-100 100 unit/mL (70-30) Insulin Pen See Rx Instructions .ROUTE .COMPLEX RF: 0 calcium carbonate-vitamin D3 [Calcium 600 + D(3)] 600 mg(1,500mg) -400 unit Tablet 1 tab PO BID RF: 0 metoprolol tartrate 25 mg Tablet 12.5 mg PO BID Qty: 0 RF: 0 metformin 500 mg Tablet 500 mg PO BID RF: 0 triamcinolone acetonide 0.1 % Cream 1 applic TOPICAL BID RF: 0 vitamin E Cream 1 applic TOPICAL TID RF: 0 pantoprazole 40 mg Tablet,Delayed Release (Dr/Ec) 40 mg PO DAILY RF: 0 lisinopril 10 mg Tablet 10 mg PO DAILY RF: 0 Discontinued amlodipine 10 mg Tablet 10 mg PO DAILY RF: 0 Krames/Other Patient Handouts: Managing Type 2 Diabetes Admission Data Admit Date/Time: 12/13/21 21:11 Attending Provider: Emanuel Abad Admit Provider: Mike Chun Primary Care Provider: Simi PLUMMER Other Providers: Emanuel Abad Coding Level of Care Code D/C DAY MANAGEMENT >30 MINS Diagnoses Sepsis A41.9 Sepsis acute organ dysfunction status: without acute organ dysfunction Sepsis type: sepsis due to unspecified organism Cellulitis of left leg L03.116 Hypomagnesemia E83.42 Diabetes E11.9 Coronary artery disease I25.10 Hypertension I10 Hyperlipidemia E78.5 GERD (gastroesophageal reflux disease) K21.9 Vascular insufficiency of extremity I99.8
--- NOTE | 2021-12-19 17:45 | Electrocardiogram Report ---
Test Reason : Blood Pressure : / mmHG Vent. Rate : 083 BPM Atrial Rate : 083 BPM P-R Int : 186 ms QRS Dur : 100 ms QT Int : 380 ms P-R-T Axes : 051 065 064 degrees QTc Int : 446 ms Normal sinus rhythm Possible Inferior infarct , age undetermined Abnormal ECG When compared with ECG of 13-DEC-2021 17:46, Borderline criteria for Inferior infarct are now Present Confirmed by Daniel Webber ([id number]) on 12/19/2021 5:44:38 PM Referred By: [facility] Confirmed By:Antony Webber
== END 2021-12-18 17:08 | DRG 872 ==
LOC: ED 17:33 → 3W 21:11 → SUATTDRO 21:11 → 3W 22:09